=== PATIENT | female | born 1935 | race Caucasian/White ===

== ENCOUNTER → 2017-09-06 | Outpatient (CLI) | payer OTHER, MEDICARE ==
[~2017-09-06] MED LIST: LOMOTIL TABLET1 EACH PO; PANTOPRAZOLE SO40 MG PO; SINCALIDE 3 MCG/VIAL INJ ONE; WELCHOL625 MG PO
--- NOTE | 2017-09-06 09:26 | Diagnostic Imaging Report ---
PROCEDURE:GALLBLADDER ULTRASOUND COMPARISON:None. INDICATIONS:Left upper quadrant pain. TECHNIQUE:Cooper scale and color Doppler ultrasound. FINDINGS: Normal pancreas body and head. Tail obscured by bowel gas. Right liver span 11.7 cm. Normal echogenicity. Smooth margin. Portal vein diameter 9 mm; normal flow direction. Normal gallbladder. Wall thickness 2 mm. Common bile duct diameter 4 mm. Right kidney span 10.2 cm. 1 cm superior pole simple cyst. Otherwise, normal kidney. CONCLUSION: Normal study. Dictated by: Natalio Fitzpatrick M.D. on 09/06/2017 at 9:35 Electronically approved by: Natalio Fitzpatrick M.D. on 09/06/2017 at 9:35
--- NOTE | 2017-09-06 21:16 | Diagnostic Imaging Report ---
Hepatobiliary Scan with Gallbladder Ejection Fraction Clinical information: 82 F with abdominal pain Report: Following intravenous administration of 6.2 millicuries of Tc-99m mebrofenin, dynamic images of the abdomen in the anterior projection were obtained through 50 minutes. Sincalide (CCK analog) 1.6 micrograms was administered intravenously over 30 minutes with additional imaging for determination of gallbladder ejection fraction. Perfusion to the liver is normal. Extraction of tracer from the blood pool by the liver parenchyma is normal. Tracer is seen promptly within the biliary tract. The gallbladder begins to fill by 10 minutes post-injection of tracer and fills adequately. Tracer is seen in the small bowel during the sincalide infusion. The gallbladder ejection fraction with administration of sincalide is 85% (normal greater than 40%). Impression: 1. Filling of the gallbladder excludes the diagnosis of acute cystic duct obstruction/acute cholecystitis. 2. Normal gallbladder ejection fraction of 85% does not support the clinical diagnosis of chronic cholecystitis/gallbladder dyskinesia. Signed by: Dr. Danyelle Jade M.D. on 09/06/2017 9:13 PM
== END ==
LOC: US 08:13
PROVIDERS: ATTEND Internal Medicine Gastroenterology
DX: R10.13 Epigastric pain (principal)
CPT/HCPCS: 76705; 78227; A9537; J2805

== ENCOUNTER 2017-11-08 05:20 | Observation (INO) | payer MEDICARE ==
[~2017-11-08] VITALS: Ht 170.2 cm; Wt 74.4 kg
[~2017-11-08 05:20] MED LIST changes: -SINCALIDE 3 MCG/VIAL INJ ONE
--- OUTSIDE RECORDS SUMMARY | 2017-11-08 05:22 | XMS REPORT ---
Author Author [facility] Address Unknown Phone Unavailable Care Team Providers Care Wet Wheeler Name Role Phone TIFFANIE SMILEY Unavailable Unavailable Problems This patient has no known problems. Allergies, Adverse Reactions, Alerts This patient has no known allergies or adverse reactions. Medications This patient has no known medications. Results Test Description Test Time Test Comments Text Results Atomic Results Result Comments HEPTOBILIARY W PHARM [place] [address] Patient Name: PRINCESS ROWE MR #: [id number] : 1935 Age/Sex: 82/F Req #: [id number] Adm Physician: Ordered by: TIFFANIE SMILEY MD Report #: [id number] Location: US Room/Bed: Procedure: [id number] NM/HEPTOBILIARY W PHARM Exam Date: 09/06/17 Exam Time: 0845 REPORT STATUS: Signed Hepatobiliary Scan with Gallbladder Ejection Fraction Clinical information: 82 F with abdominal pain Report: Following intravenous administration of 6.2 millicuries of Tc-99m mebrofenin, dynamic images of the abdomen in the anterior projection were obtained through 50 minutes. Sincalide (CCK analog) 1.6 micrograms was administered intravenously over 30 minutes with additional imaging for determination of gallbladder ejection fraction. Perfusion to the liver is normal. Extraction of tracer from the blood pool by the liver parenchyma is normal. Tracer is seen promptly within the biliary tract. The gallbladder begins to fill by 10 minutes post-injection of tracer and fills adequately. Tracer is seen in the small bowel during the sincalide infusion. The gallbladder ejection fraction with administration of sincalide is 85% ( normal greater than 40%). Impression: 1. Filling of the gallbladder excludes the diagnosis of acute cystic duct obstruction/acute cholecystitis. 2. Normal gallbladder ejection fraction of 85% does not support the clinical diagnosis of chronic cholecystitis/gallbladder dyskinesia. Signed by: Dr. Toñito Jade M.D. on 09/06/2017 9:13 PM Dictated By: TOÑITO JADE MD 12 Transcribed By: MAR on 09/06/172112 COPY TO: TIFFANIE MSILEY MD GALLBLADDER [place] [address] Patient Name: PRINCESS ROWE MR #: [id number] : 1935 Age/Sex: 82/F Req # : [id number] Adm Physician: Ordered by: TIFFANIE SMILEY MD Report #: [id number] Location: Room/Bed: Procedure: [id number] US/US GALLBLADDER Exam Date: Exam Time: REPORT STATUS: Signed PROCEDURE: GALLBLADDER ULTRASOUND COMPARISON: None. INDICATIONS: Left upper quadrant pain. TECHNIQUE: Cooper scale and color Doppler ultrasound. FINDINGS: Normal pancreas body and head. Tail obscured by bowel gas. Right liver span 11.7 cm. Normal echogenicity. Smooth margin. Portal vein diameter 9 mm; normal flow direction. Normal gallbladder. Wall thickness 2 mm. Common bile duct diameter 4 mm. Right kidney span 10.2 cm. 1 cm superior pole simple cyst. Otherwise, normal kidney. CONCLUSION: Normal study. Dictated by: Devan Fitzpatrick M.D. on 09/06/2017 at 9:35 Electronically approved by: Devan Fitzpatrick M.D. on 09/06/2017 at 9: 35 Dictated By: DEVAN FITZPATRICK MD 4 Transcribed By: MARLIN on 09/06/17934 COPY TO: TIFFANIE SMILEY MD
[2017-11-08] MEDS ORDERED: ASPIRIN 81 MG CHEW TAB PO ONE ×2 (05:30→07:00)
[2017-11-08] MEDS ORDERED: AMLODIPINE BESYL5 MG PO (05:38)
[2017-11-08] MEDS ORDERED: EVOXAC30 MG PO (05:38)
[2017-11-08] MEDS ORDERED: ARICEPT5 MG PO (05:39)
[2017-11-08] MEDS ORDERED: CYMBALTA30 MG PO (05:40)
[2017-11-08] MEDS ORDERED: VITAMIN D31000 UNIT PO (05:42)
[2017-11-08] MEDS ORDERED: ALIGN4 MG PO (05:42)
[2017-11-08] MEDS ORDERED: SUPER B COMPLE150 MG PO (05:43)
[2017-11-08] MEDS ORDERED: MULTIVITAMINS1 EAC7 PO (05:43)
[2017-11-08] MEDS ORDERED: ACETAMINOP325 MG/10 PO (05:44)
[2017-11-08] MEDS ORDERED: L-GLUTAMINE500 MG PO (05:45)
[2017-11-08] MEDS ORDERED: BUDESONIDE EC3 MG PO (05:46)
[2017-11-08] MEDS ORDERED: APRISO0.375 GM PO (05:47)
[2017-11-08 05:57] LABS: BASOPHILS # (AUTO) 0.1 (0.0-0.1); BASOPHILS % 0.6 % (0.0-1.0); EOSINOPHILS # (AUTO) 0.2 (0.0-0.4); EOSINOPHILS % 2.4 % (0.0-6.0); HEMATOCRIT 43.9 % (34.2-44.1); LYMPHOCYTES # (AUTO) 3.1 (1.0-3.2); LYMPHOCYTES % 38.1 % (18.0-39.1); MEAN CORPUSCULAR HEMOGLOBIN 34.9 pg (28-32); MEAN CORPUSCULAR HGB CONC 34.2 g/dL (31-35); MEAN CORPUSCULAR VOLUME 102.1 fL (81-99); MONOCYTES # (AUTO) 0.9 (0.2-0.8); NEUTROPHILS # (AUTO) 3.9 (2.1-6.9); NEUTROPHILS % 47.5 % (38.7-80.0); PLATELET COUNT 362 x10e3/uL (140-360); RED CELL DISTRIBUTION WIDTH 11.9 % (11.7-14.4)
[2017-11-08 06:26] LABS: ALANINE AMINOTRANSFERASE 20 IU/L (0-55); ALBUMIN 3.8 g/dL (3.5-5.0); ALBUMIN/GLOBULIN RATIO 1.4 (0.8-2.0); ALKALINE PHOSPHATASE 65 IU/L (40-150); ANION GAP 13.5 mmol/L (8-16); BLOOD UREA NITROGEN 8 mg/dL (7-26); BUN/CREATININE RATIO 11 (6-25); CALCIUM 9.6 mg/dL (8.4-10.2); CARBON DIOXIDE 26 mmol/L (22-29); CHLORIDE 106 mmol/L (98-107); CREATINE KINASE 30 IU/L (29-168); CREATININE, SERUM 0.71 mg/dL (0.57-1.11); EST GLOMERULAR FILTRATION RATE > 60 ML/MIN (60-); GLUCOSE 89 mg/dL (74-118); INR 1.03; POTASSIUM 3.5 mmol/L (3.5-5.1); PROTHROMBIN TIME 12.7 seconds (11.9-14.5); SODIUM 142 mmol/L (136-145)
[2017-11-08 06:27] LABS: PARTIAL THROMBOPLASTIN TIME 30.2 seconds (23.8-35.5)
--- NOTE | 2017-11-08 06:57 | Diagnostic Imaging Report ---
EXAMINATION: CHEST SINGLE (PORTABLE) INDICATION: Chest pain COMPARISON: None FINDINGS: TUBES and LINES: None. LUNGS: Lungs are well inflated. Lungs are clear. There is no evidence of pneumonia or pulmonary edema. PLEURA: No pleural effusion or pneumothorax. HEART AND MEDIASTINUM: The cardiomediastinal silhouette is unremarkable. BONES AND SOFT TISSUES: No acute osseous lesion. Soft tissues are remarkable for right breast implant. UPPER ABDOMEN: No free air under the diaphragm. IMPRESSION: No acute thoracic abnormality. Signed by: Dr. Flavio Brown M.D. on 11/08/2017 6:54 AM
[2017-11-08] MEDS ORDERED: ONDANSETRON HCL INJ 2 MG/ML VIAL IV PRN (07:00)
[2017-11-08] MEDS ORDERED: SODIUM CHLORIDE FLUSH 10 ML SYR INJ PRN (07:00)
[2017-11-08] MEDS: BIFIDOBACTERIUM INFANTIS 4 MG PO SCH (09:00)
[2017-11-08] MEDS ORDERED: CHOLECALCIFEROL PO SCH (09:00)
[2017-11-08] MEDS: GLUTAMINE PO SCH (09:00)
[2017-11-08] MEDS: VITAMIN B COMPLEX PO SCH (09:00)
[2017-11-08] MEDS: VIT C NO 4 PO SCH (09:00)
[2017-11-08] MEDS: (Cevimeline Hcl (Evoxac) 30 MG) PO SCH ×3 (09:00→21:22)
[2017-11-08 09:35] VITALS: BP 161/85
[2017-11-08] MEDS: BUDESONIDE 3 MG CAPCR PO SCH (10:04)
[2017-11-08] MEDS: AMLODIPINE BESYLATE 5 MG TAB PO SCH (10:04)
[2017-11-08] MEDS: MULTIVITAMINS/MINERALS TAB PO SCH (10:04)
[2017-11-08] MEDS: MESALAMINE 0.375 GM CAPCR PO SCH (10:04)
[2017-11-08] MEDS: DULOXETINE HCL 30 MG DELAYED RELEASE PO SCH (10:04)
[2017-11-08 10:57] VITALS: BP 161/85
[2017-11-08 11:12] VITALS: BP 141/78
[2017-11-08 11:36] LABS: BILIRUBIN,URINE NEGATIVE (NEGATIVE); CLARITY,URINE CLEAR (CLEAR); COLOR,URINE YELLOW (YELLOW); KETONES,URINE NEGATIVE (NEGATIVE); LEUKOCYTE ESTERASE ,URINE NEGATIVE (NEGATIVE); NITRITE,URINE NEGATIVE (NEGATIVE); PROTEIN,URINE DIPSTICK NEGATIVE (NEGATIVE); URINE UROBILINOGEN 0.2 mg/dL (0.2 - 1)
[2017-11-08 11:51] LABS: BACTERIA,URINE RARE /HPF; EPITHELIAL CELLS,URINE RARE /LPF
[2017-11-08] MEDS: CHOLECALCIFEROL 1,000 UNIT TAB PO SCH (11:54)
[2017-11-08] MEDS ORDERED: SALIVA SUBSTITUTE 45 ML LIQD MM PRN (13:30)
[2017-11-08 15:03] LABS: CREATINE KINASE 26 IU/L (29-168)
[2017-11-08 15:09] VITALS: BP 141/79
[2017-11-08 20:00] VITALS: BP 119/66
[2017-11-08] MEDS: DONEPEZIL HCL 5 MG TAB PO SCH (21:22)
[2017-11-08] MEDS: ACETAMINOPHEN 325 MG/10 ML UDC PO SCH (21:22)
--- NOTE | 2017-11-08 21:22 | History and Physical ---
PRIMARY CARE PHYSICIAN: Dr. Gil Cornejo CHIEF COMPLAINT: Chest pain. HISTORY OF PRESENT ILLNESS: This is an 82-year-old woman with a history of TIA in 2016, now developing substernal chest pain in about 3 a.m. in the morning with radiation to the left. She had associated shortness of breath, but no dizziness. Her last stress test was in the past. She does not recall when, but she states it was negative. She had seen Dr. Alvarado in the past. Currently, she continues to have some chest discomfort . PAST MEDICAL HISTORY: Chronic diarrhea, TIA in 2015. Left ventricular ejection fraction 65% in August 2013. Dementia and hypertension. GI bleed. PAST SURGICAL HISTORY: Marcelina fundoplication, inguinal hernia repair, total mastectomy for fibrocystic breast disease, D and C, appendectomy, tonsillectomy. ALLERGIES: PER ELECTRONIC MEDICAL RECORD. FAMILY HISTORY AND SOCIAL HISTORY: The patient is . She has 2 children. No alcohol, illicit drugs, cigarettes. MEDICATIONS: Per electronic medical record. REVIEW OF SYSTEMS: Denies any dizziness, fever or chills. PHYSICAL EXAMINATION VITAL SIGNS: Reviewed. GENERAL: A tired-appearing woman, resting in bed. HEENT: Anicteric. Pupils are responsive to light. No oral lesions. CARDIOVASCULAR: Normal S1 and S2. No murmurs audible. LUNGS: Moderate breath sounds. No wheezing. ABDOMEN: Soft, nontender, nondistended. EXTREMITIES: No edema or calf tenderness. NEUROLOGIC: Alert, oriented times 3, moving all extremities. SKIN: Dry. PSYCHIATRIC: Normal affect. MUSCULOSKELETAL: She has chest wall tenderness on palpation. LABS: Reviewed. MEDICATIONS: Reviewed. ASSESSMENT AND PLAN: This is an 82-year-old woman. 1. Chest pain. Likely musculoskeletal as the chest wall is tender on palpation. However, we will consult cardiology and follow up cardiac enzyme. 2. Overweight state. Body mass index 25.7. However, blood glucose is normal. 3. Questionable anxiety disorder. I will treat empirically with p.r.n. medication. 4. Chronic diarrhea. Continue mesalamine. 5. Hypertension. Continue amlodipine. 6. Dementia. Continue Aricept. 7. Prophylaxis: Will use Lovenox and Pepcid. 8. Disposition: Follow up enzymes. Cardiology consultation. Obtain 2-dimensional echocardiogram and obtain stress test inpatient versus out. Job#: [id number] CODY
[2017-11-08 22:19] LABS: CREATINE KINASE MB 0.7 ng/mL (0-5.0)
[2017-11-08] MEDS ORDERED: ACETAMINOPHEN 325 MG TAB PO PRN (23:45)
[2017-11-09] VITALS (7 sets, daily range): BP systolic 142–179; BP diastolic 74–83
[2017-11-09] MEDS ORDERED: FAMOTIDINE20 MG PO (05:51)
[2017-11-09 06:58] LABS: BASOPHILS % 0.5 % (0.0-1.0); EOSINOPHILS # (AUTO) 0.2 (0.0-0.4); EOSINOPHILS % 2.6 % (0.0-6.0); HEMATOCRIT 39.1 % (34.2-44.1); HEMOGLOBIN 13.3 g/dL (12.0-16.0); LYMPHOCYTES # (AUTO) 2.7 (1.0-3.2); LYMPHOCYTES % 36.6 % (18.0-39.1); MEAN CORPUSCULAR HEMOGLOBIN 34.7 pg (28-32); MEAN CORPUSCULAR VOLUME 102.1 fL (81-99); MONOCYTES # (AUTO) 0.8 (0.2-0.8); MONOCYTES % 10.3 % (4.4-11.3); NEUTROPHILS # (AUTO) 3.7 (2.1-6.9); NEUTROPHILS % 49.3 % (38.7-80.0); PLATELET COUNT 305 x10e3/uL (140-360); RED BLOOD COUNT 3.83 x10e6/uL (3.6-5.1); RED CELL DISTRIBUTION WIDTH 11.9 % (11.7-14.4)
[2017-11-09 07:33] LABS: ALANINE AMINOTRANSFERASE 16 IU/L (0-55); ALBUMIN 3.3 g/dL (3.5-5.0); ALBUMIN/GLOBULIN RATIO 1.4 (0.8-2.0); ALKALINE PHOSPHATASE 60 IU/L (40-150); ANION GAP 9.9 mmol/L (8-16); BLOOD UREA NITROGEN 8 mg/dL (7-26); BUN/CREATININE RATIO 11 (6-25); CALCIUM 9.1 mg/dL (8.4-10.2); CARBON DIOXIDE 30 mmol/L (22-29); CHLORIDE 107 mmol/L (98-107); EST GLOMERULAR FILTRATION RATE > 60 ML/MIN (60-); GLUCOSE 87 mg/dL (74-118); POTASSIUM 3.9 mmol/L (3.5-5.1); SODIUM 143 mmol/L (136-145)
--- NOTE | 2017-11-09 08:12 | Consultation ---
DATE OF CONSULTATION: CARDIOLOGY CONSULTATION CHIEF COMPLAINT: The patient is an 82 year old with chest pain. HISTORY OF PRESENT ILLNESS: The patient is an 82 year old who has been having chest pressure and chest pain on a frequent basis for several years. Last night the patient had some more chest pain, which awoke her from sleep and lasted about 20 minutes. The patient came to the emergency room and was subsequently admitted. The patient has had no further chest pain. PAST MEDICAL HISTORY: Significant for: 1. Hypertension. 2. Sjogren's syndrome. 3. Previous neck surgery. 4. Previous bilateral mastectomy. MEDICATIONS: At home include amlodipine, Aricept, Pepcid. SOCIAL HISTORY: The patient does not drink and does not smoke. PHYSICAL EXAMINATION GENERAL: The patient is a well-developed, well-nourished female in no obvious distress. VITAL SIGNS: Temperature 97.8, blood pressure 142/80. HEENT: The patient's cranium was normocephalic and atraumatic. Extraocular muscles were intact. Sclerae were anicteric. Pupils equal, round and reactive to light. There is no pallor or cyanosis of the oral mucosa. There is no erythema or edema of the throat. NECK: Supple. No jugular venous distention. No carotid bruits. CHEST: Demonstrated rhonchi bilaterally. CARDIAC: Demonstrated normal S1 and S2. A short 2/6 systolic murmur. ABDOMEN: Demonstrated good bowel sounds. No tenderness. No masses. EXTREMITIES: There is no clubbing. No cyanosis. No edema. NEUROLOGIC: The patient was awake and in no distress. Cranial nerves were intact. Motor strength was intact in all limbs. The patient's EKG demonstrated normal sinus rhythm with nonspecific S-T and T-wave changes. IMPRESSION: The patient is an 82 year old with atypical chest pain. The patient's electrocardiogram is unremarkable. The patient's cardiac enzymes are negative. RECOMMENDATIONS: Are as follows: 1. The patient will require an echocardiogram. 2. A Lexiscan nuclear stress test has been ordered to exclude ischemia. Job#: [id number] RI cc:CIRILO BROTHERS MD
[2017-11-09] MEDS ORDERED: REGADENOSON 0.4 MG/5 ML SYR IV ONE (08:32)
[2017-11-09] MEDS: VIT C NO 4 PO SCH (09:00)
[2017-11-09] MEDS: BIFIDOBACTERIUM INFANTIS 4 MG PO SCH (09:00)
[2017-11-09] MEDS: BUDESONIDE 3 MG CAPCR PO SCH (09:00)
[2017-11-09] MEDS: (Cevimeline Hcl (Evoxac) 30 MG) PO SCH ×3 (09:00→20:07)
[2017-11-09] MEDS: VITAMIN B COMPLEX PO SCH (09:00)
[2017-11-09] MEDS: GLUTAMINE PO SCH (09:00)
[2017-11-09] MEDS: AMLODIPINE BESYLATE 5 MG TAB PO SCH (09:50)
[2017-11-09] MEDS: CHOLECALCIFEROL 1,000 UNIT TAB PO SCH (09:50)
[2017-11-09] MEDS: ACETAMINOPHEN 325 MG/10 ML UDC PO SCH (09:50)
[2017-11-09] MEDS: DULOXETINE HCL 30 MG DELAYED RELEASE PO SCH (09:50)
[2017-11-09] MEDS: MESALAMINE 0.375 GM CAPCR PO SCH (09:50)
[2017-11-09] MEDS: FAMOTIDINE 20 MG TAB PO SCH ×2 (09:50→17:11)
[2017-11-09] MEDS: MULTIVITAMINS/MINERALS TAB PO SCH (09:50)
--- NOTE | 2017-11-09 14:20 | Cardiology Report ---
DATE OF STUDY: LEXISCAN NUCLEAR STRESS TEST INDICATIONS: Chest pain. COMPLICATIONS: None. ANESTHESIA: Versed, fentanyl and lidocaine. TECHNIQUE: The patient was given 10 millicuries of Myoview. Resting images were obtained in the horizontal long axis, vertical long axis and short axis. The patient was then hooked up to the EKG machine and Lexiscan was infused over 15 seconds. Immediately, after Lexiscan infusion, the patient was given 30 millicuries of Myoview. Stress images were obtained in the horizontal long axis, vertical long axis and short axis. RESULTS 1. The resting EKG demonstrated normal sinus rhythm with some nonspecific S/T and T-wave changes. 2. There were no EKG changes and no symptoms during Lexiscan infusion. 3. The patient had normal perfusion to all segments of the myocardium during both stress and rest. 4. There was normal left ventricular size and function with an ejection fraction of 60%. CONCLUSION: Normal Lexiscan nuclear stress test with no evidence of ischemia. There is no fixed defect and no reversible defect. There is normal left ventricular size and function with an ejection fraction of 60%. Job#: [id number] RI cc:ICRILO BROTHERS MD
[2017-11-09] MEDS ORDERED: ACETAMIN/BUTALBITAL/CAFFEINE TAB PO PRN (16:00)
[2017-11-09] MEDS ORDERED: ACETAMIN/BUTALBITAL/CAFFEINE TAB PO ONE (16:00)
[2017-11-09] MEDS ORDERED: ENOXAPARIN SOD INJ 40 MG/0.4 ML SYR SC SCH (17:00)
[2017-11-09] MEDS ORDERED: HYDRALAZINE HCL 20 MG/ML VIAL IV PRN (19:15)
[2017-11-09] MEDS ORDERED: HYDROCODONE/APAP 5MG-325MG TAB PO PRN ×2 (19:15→19:30)
[2017-11-09] MEDS: DONEPEZIL HCL 5 MG TAB PO SCH (20:07)
[2017-11-10 03:40] VITALS: BP 152/77
--- NOTE | 2017-11-10 06:57 | Progress Note ---
DATE: November 09, 2017 TIME: 7 a.m. OVERNIGHT: No events. REVIEW OF SYSTEMS: Denies any dizziness or chest pain. PHYSICAL EXAMINATION VITAL SIGNS: Reviewed. GENERAL: A tired-appearing woman resting in bed. HEENT: Anicteric. CARDIOVASCULAR: Normal S1 and S2. LUNGS: Moderate breath sounds. ABDOMEN: Soft and nontender. EXTREMITIES: No edema. SKIN: Dry. PSYCHIATRIC: Normal affect. MUSCULOSKELETAL: Tender chest wall. LABS: Reviewed. MEDICATIONS: Reviewed. ASSESSMENT: An 82-year-old woman with: 1. Musculoskeletal chest pain. 2. Overweight state. 3. Questionable anxiety disorder. 4. Chronic diarrhea. 5. Hypertension. 6. Dementia. PLAN 1. Continue meloxicam for musculoskeletal chest pain. 2. Follow up cardiac recommendations and possible stress test. 3. Treat anxiety empirically. 4. Continue mesalamine for chronic diarrhea. 5. Continue Aricept for dementia. 6. Follow up echo and stress test. Job#: [id number] [place]
--- NOTE | 2017-11-10 07:00 | Discharge Summary ---
PRINCIPAL DIAGNOSES 1. Musculoskeletal chest pain. 2. Negative stress testing. 3. Normal left ventricular ejection fraction. 4. Overweight state. Body mass index 25.7. 5. Questionable anxiety disorder. SECONDARY DIAGNOSES 1. Hypertension. 2. Chronic diarrhea. CHIEF COMPLAINT: Chest pain. HISTORY OF PRESENT ILLNESS: An 82-year-old woman with chest pain. Refer to the H and P for further details. HOSPITAL COURSE: The patient was found to have musculoskeletal chest pain. Cardiac enzymes were obtained. Underwent stress testing, which was normal. No ischemia. Left ventricular ejection fraction normal. The patient currently appropriate for discharge. Follow up. DISCHARGE MEDICATIONS: Per electronic medical record. FOLLOWUP: Primary care doctor in 1 week. CONDITION ON DISCHARGE: Stable and improving. DISCHARGE LOCATION: Home. CIRILO BROTHERS MD Job#: [id number] [place]
[2017-11-10 07:39] VITALS: BP 164/76
[2017-11-10] MEDS: DULOXETINE HCL 30 MG DELAYED RELEASE PO SCH (08:32)
[2017-11-10] MEDS: FAMOTIDINE 20 MG TAB PO SCH (08:32)
[2017-11-10] MEDS: BUDESONIDE 3 MG CAPCR PO SCH (08:32)
[2017-11-10] MEDS: MESALAMINE 0.375 GM CAPCR PO SCH (08:32)
[2017-11-10] MEDS: BIFIDOBACTERIUM INFANTIS 4 MG PO SCH (08:32)
[2017-11-10] MEDS: (Cevimeline Hcl (Evoxac) 30 MG) PO SCH (08:33)
[2017-11-10] MEDS: GLUTAMINE PO SCH (08:33)
[2017-11-10] MEDS: VITAMIN B COMPLEX PO SCH (08:33)
[2017-11-10] MEDS: MULTIVITAMINS/MINERALS TAB PO SCH (08:33)
[2017-11-10] MEDS: AMLODIPINE BESYLATE 5 MG TAB PO SCH (08:33)
[2017-11-10] MEDS: VIT C NO 4 PO SCH (08:33)
[2017-11-10] MEDS: CHOLECALCIFEROL 1,000 UNIT TAB PO SCH (08:33)
== END 2017-11-10 09:15 | disposition home or self-care (01) ==
LOC: ER 05:20 → ERHOLD 06:53 → IMCU 08:59
PROVIDERS: ADMIT Internal Medicine; ATTEND Internal Medicine
DX: R07.89 Other chest pain (principal); K52.9 Noninfective gastroenteritis and colitis, unspecified; E66.9 Obesity, unspecified; Z68.25 Body mass index [BMI] 25.0-25.9, adult; F41.9 Anxiety disorder, unspecified; F03.90 Unspecified dementia, unspecified severity, without behavioral disturbance, psychotic disturbance, mood disturbance, and anxiety; Z86.73 Personal history of transient ischemic attack (TIA), and cerebral infarction without residual deficits; Z88.6 Allergy status to analgesic agent; Z88.8 Allergy status to other drugs, medicaments and biological substances; I10 Essential (primary) hypertension
CPT/HCPCS: 36415 ×2; 71045; 78452; 80053 ×2; 80061; 81001; 82550; 82553; 84484; 85025 ×2; 85610; 85730; 93005; 93017; 93306; 93880; 97139; 99284; A9502; G0378 ×3; J0360; J1650

== ENCOUNTER 2019-02-13 11:10 | Emergency (ER) | payer MEDICARE ==
[~2019-02-13] VITALS: Ht 170.2 cm; Wt 74.4 kg
[~2019-02-13 11:10] MED LIST changes: +ACETAMINOP325 MG/10 PO; +ALIGN4 MG PO; +AMLODIPINE BESYL5 MG PO; +APRISO0.375 GM PO; +ARICEPT5 MG PO; +BUDESONIDE EC3 MG PO; +CYMBALTA30 MG PO; +EVOXAC30 MG PO; +FAMOTIDINE20 MG PO; +L-GLUTAMINE500 MG PO; +MULTIVITAMINS1 EAC7 PO; +SUPER B COMPLE150 MG PO; +VITAMIN D31000 UNIT PO
--- OUTSIDE RECORDS SUMMARY | 2019-02-13 11:15 | XMS REPORT | Continuity of Care Document ---
Author Author [email or web address] Address Unknown Phone Unavailable Care Team Providers Care Medical Asst Name Role Phone Condition One [employer] Unavailable Unavailable Problems Problem Status Onset Date Classification Date Reported Comments Source R13.10 Active 02/09/2017 [facility] Discharge Diagnosis: Vasovagal near syncope 11/08/2014 11/10/2014 [facility] WEAKNESS Active 11/08/2014 [facility] RECTAL PROLAPSED Active 09/20/2014 [facility] DR SENT/ KIDNEY INFECTION Active 12/28/2013 [facility] PYELONEPHRITIS Active 12/28/2013 [facility] Chronic gastritis Active Problem 02/14/2017 [facility] OA (Confirmed) Active Problem 02/14/2017 [facility] Rectal prolapse Active Problem 02/14/2017 [facility] Sjogrens syndrome Active Problem 02/14/2017 [facility] PYELONEPHRITIS NOS Active [facility] RECTAL PROLAPSE Active [facility] Medications Medication Details Route Status Patient Instructions Ordering Provider Order Date Source Saline Flush 0.9% 10 mL, Route: IVP, Drug Form: INJ, Dosing Weight 65.909, kg, PRN, PRN Line Flush, Start date: 11/08/14 14:31:00, Duration: 30 day, Stop date: 12/08/14 14:30:00Notes: (Same as: BD Posiflush) No Longer Active 11/08/2014 [facility] Sodium Chloride 0.154 MEQ/ML Injectable Solution 1,000 mL, 1,000 ml/hr, Infuse Over: 1 hr, Route: IV, ONCE, Priority: STAT, Dosing Weight 65.909 kg, Start date: 11/08/14 14:31:00, Duration: 1 doses or times, Stop date: 11/08/14 14:31:00 Inactive 11/08/2014 [facility] Levofloxacin 500 MG Oral Tablet [Levaquin] 500 mg=1 tab, PO, Daily, # 10 tab, 0 Refill(s) Active 01/01/2014 [facility] Milk of Magnesia 30 ml, Route: PO, Drug Form: SUSP, Dosing Weight 65.909, kg, Q6H, PRN Constipation, Start date: 12/31/13 9:31:00, Duration: 30 day, Stop date: 01/30/14 9:30:00Notes: (Same as: Milk of Magnesia, MOM) No Longer Active 12/31/2013 [facility] Potassium Chloride 20 mEq, 1 tab, Route: PO, Drug form: ERTAB, ONCE, Dosing Weight 65.909, kg, Start date: 12/30/13 10:41:00, Stop date: 12/30/13 10:41:00Notes: (Same as: K-Dur 20) "Do Not Crush" With food and full glass of water Inactive 12/30/2013 [facility] Rocephin + Sodium Chloride 0.9% IV 100 mL 1 gm, Route: IVPB, [id number], Start date: 12/29/13 22:30:00, Duration: 30 day, Stop date: 01/27/14 22:30:00Notes: (Same As: Rocephin). Use with 100ml NS mini-bag PLUS and infuse over 30 min Inactive 12/30/2013 [facility] Protonix 40 mg, 1 tab, Route: PO, Drug form: ECTAB, Before Dinner, Dosing Weight 65.909, kg, Start date: 12/29/13 16:30:00, Duration: 30 day, Stop date: 01/27/14 16:30:00Notes: Tablet should not be chewed or crushed. (Same as: Protonix) No Longer Active 12/29/2013 [facility] Ciprofloxacin 2 MG/ML Injectable Solution [Cipro] 400 mg, 200 mL, Route: IVPB, Drug form: INJ, [id number], Dosing Weight 65.909, kg, Start date: 12/29/13 12:00:00, Duration: 30 day, Stop date: 01/28/14 0:00:00Notes: Do not refrigerate No Longer Active 12/29/2013 [facility] cefepime 1 gm, Route: IVPB, [id number], Dosing Weight 65.909, kg, (CrCl 30 - 49 ml/min), Start date: 12/29/13 12:00:00, Duration: 30 day, Stop date: 01/28/14 0:00:00Notes: (Same As: Maxipime) No Longer Active 12/29/2013 [facility] Zofran 4 mg, 2 mL, Route: IV, Drug form: INJ, Q8H, Dosing Weight 65.909, kg, PRN Nausea, Start date: 12/29/13 11:51:00, Duration: 30 day, Stop date: 01/28/14 11:50:00Notes: (Same as: Zofran) No Longer Active 12/29/2013 [facility] NS 1,000 mL 1,000 mL, Rate: 60 ml/hr, Infuse over: 16.7 hr, Route: IV, Dosing Weight 65.909 kg, Total Volume: 1,000, Start date: 12/29/13 11:50:00, Duration: 2 doses or times, Stop date: 12/30/13 21:13:00 No Longer Active 12/29/2013 [facility] Tylenol 650 mg, 2 tab, Route: PO, Drug form: TAB, Q4H, Dosing Weight 65.909, kg, PRN Fever, Start date: 12/29/13 11:49:00, Duration: 30 day, Stop date: 01/28/14 11:48:00Notes: Do not exceed 4 gm/day. (Same as: Tylenol) No Longer Active 12/29/2013 [facility] Potassium Chloride 20 mEq, 1 tab, Route: PO, Drug form: ERTAB, ONCE, Dosing Weight 65.909, kg, Start date: 12/29/13 5:19:00, Stop date: 12/29/13 5:19:00Notes: (Same as: K-Dur 20) "Do Not Crush" With food and full glass of water Inactive 12/29/2013 [facility] Ceftriaxone 1 gm, Route: IVPB, [id number], Dosing Weight 65.909, kg, Priority: STAT, Start date: 12/29/13 1:18:00, Duration: 30 day, Stop date: 01/27/14 1:18:00Notes: (Same As: Rocephin). Use with 100ml NS mini-bag PLUS and infuse over 30 min Inactive 12/29/2013 [facility] Acetaminophen 325 MG / Hydrocodone Bitartrate 5 MG Oral Tablet 1 tab, Route: PO, Drug Form: TAB, Dosing Weight 65.909, kg, Q4H, PRN Pain Score 1-3, Start date: 12/29/13 1:18:00, Duration: 30 day, Stop date: 01/28/14 1:17:00Notes: (Same as: Napoleon 325/5) Do not exceed 4gm/day of acetaminophen. No Longer Active 12/29/2013 [facility] Melatonin 1 mg oral tablet 1 mg=1 tab, PO, Bedtime, for insomnia, # 90 tab, 0 Refill(s) Active 12/29/2013 [facility] Saccharomyces boulardii lyo 250 MG Oral Capsule [Florastor] 250 mg=1 cap, PO, BID, 0 Refill(s) Active 12/29/2013 [facility] Ketorolac 30 mg, 1 mL, Route: IVP, Drug form: INJ, ONCE, Dosing Weight 65.909, kg, Priority: STAT, Start date: 12/28/13 20:40:00, Stop date: 12/28/13 20:40:00Notes: (Same as:Toradol) IV bolus must be given >15 seconds. Give IM administration slowly and deeply into the muscle. Not for use > 4 days Inactive 12/29/2013 [facility] Ceftriaxone 1 gm, Route: IVPB, ONCE, Dosing Weight 65.909, kg, Priority: STAT, Start date: 12/28/13 20:35:00, Stop date: 12/28/13 20:35:00Notes: (Same As: Rocephin). Use with 100ml NS mini-bag PLUS and infuse over 30 min Inactive 12/29/2013 [facility] Saline Flush 0.9% 5 mL, Route: IVP, Drug Form: INJ, kg, PRN, PRN Line Flush, Start date: 12/28/13 19:07:00, Duration: 24 hr, Stop date: 12/29/13 19:06:00Notes: (Same as: BD Posiflush) No Longer Active 12/29/2013 [facility] Allergies, Adverse Reactions, Alerts Substance Category Reaction Severity Reaction type Status Date Reported Comments Source azithromycin Assertion Drug allergy Active [facility] Food Lactose Intolerance (Restricts Milk/Milk Products) Assertion Drug allergy Active [facility] Food Pork Assertion Drug allergy Active [facility] Food Shellfish Assertion Drug allergy Active [facility] NSAIDs Assertion Drug allergy Active [facility] penicillins Assertion Drug allergy Active [facility] sulfa drugs Assertion Drug allergy Active [facility] Mycinette Sore Throat Cammal Assertion Drug allergy Active [facility] Immunizations No Data Provided for This Section Results Order Name Results Value Reference Range Date Interpretation Comments Source URINE AND STOOL UA Bacteria Occasional /HPF None Seen /HPF 11/08/2014 [facility] URINE AND STOOL UA Hyal Cast 2 0 - 2 11/08/2014 [facility] URINE AND STOOL UA WBC 2 0 - 5 11/08/2014 [facility] URINE AND STOOL UA RBC 1 0 - 2 11/08/2014 [facility] URINE AND STOOL UA Blood Negative (11/08/14 4:04 PM) Negative 11/08/2014 [facility] URINE AND STOOL UA Nitrite Negative (11/08/14 4:04 PM) Negative 11/08/2014 [facility] URINE AND STOOL UA Bili Negative *NA* (11/08/14 4:04 PM) Negative 11/08/2014 [facility] URINE AND STOOL UA Leuk Est Negative (11/08/14 4:04 PM) Negative 11/08/2014 [facility] URINE AND STOOL UA Sq Epi Occasional /LPF Few /LPF 11/08/2014 [facility] URINE AND STOOL UA Turbidity Clear (11/08/14 4:04 PM) Clear 11/08/2014 [facility] URINE AND STOOL UA Spec Grav 1.009 <=1.030 11/08/2014 [facility] URINE AND STOOL UA Glucose Negative mg/dL Negative mg/dL 11/08/2014 [facility] URINE AND STOOL UA pH 7.0 5.0 - 8.0 11/08/2014 [facility] URINE AND STOOL UA Protein Negative mg/dL Negative mg/dL 11/08/2014 [facility] URINE AND STOOL UA Color Ltyellow 11/08/2014 [facility] URINE AND STOOL UA Urobilinogen <=1.0 mg/dL 0.1 - 1.0 11/08/2014 [facility] URINE AND STOOL UA Ketones Negative mg/dL Negative mg/dL 11/08/2014 [facility] CHEM PANEL Lactic Acid Lvl 1.0 0.5 - 2.2 11/08/2014 [facility] CARDIAC ENZYMES CK MB Index 1.9 0.0 - 2.5 11/08/2014 [facility] CARDIAC ENZYMES CK MB 0.9 0.5 - 3.6 11/08/2014 [facility] CARDIAC ENZYMES Total CK 48 12 - 191 11/08/2014 [facility] CARDIAC ENZYMES Troponin-I <0.02 0.00 - 0.40 11/08/2014 [facility] CHEM PANEL eGFR 62 11/08/2014 <sup>1</sup>Result Comment: The eGFR is calculated using the CKD-EPI formula. In most young, healthy individuals the eGFR will be >90 mL/min/1.73m2. The eGFR declines with age. An eGFR of 60-89 may be normal in some populations, particularly the elderly, for whom the CKD-EPI formula has not been extensively validated. Use of the eGFR is not recommended in the following populations:& lt;br/>
Individuals with unstable creatinine concentrations, including patients and those with serious co-morbid conditions.

Patients with extremes in muscle mass or diet.

The data above are obtained from the National Kidney Disease Education Program (NKDEP) which additionally recommends that when the eGFR is used in patients with extremes of body mass index for purposes of drug dosing, the eGFR should be multiplied by the estimated BMI. [facility] CHEM PANEL Chloride Lvl 107 95 - 109 11/08/2014 [facility] CHEM PANEL Calcium Lvl 9.0 8.5 - 10.5 11/08/2014 [facility] CHEM PANEL Albumin Lvl 4.0 3.5 - 5.0 11/08/2014 [facility] CHEM PANEL Sodium Lvl 141 135 - 145 11/08/2014 [facility] CHEM PANEL Potassium Lvl 3.6 3.5 - 5.1 11/08/2014 [facility] CHEM PANEL Creatinine Lvl 0.9 0.5 - 1.4 11/08/2014 [facility] CHEM PANEL A/G Ratio 1.1 0.7 - 1.6 11/08/2014 [facility] CHEM PANEL Globulin 3.5 2.0 - 4.0 11/08/2014 [facility] CHEM PANEL AGAP 9.6 10.0 - 20.0 11/08/2014 [facility] CHEM PANEL B/C Ratio 12 6 - 25 11/08/2014 [facility] CHEM PANEL Bili Total 0.3 0.2 - 1.3 11/08/2014 [facility] CHEM PANEL Alk Phos 100 39 - 136 11/08/2014 [facility] CHEM PANEL ALT 20 0 - 65 11/08/2014 [facility] CHEM PANEL Total Protein 7.5 6.4 - 8.4 11/08/2014 [facility] CHEM PANEL CO2 28 24 - 32 11/08/2014 [facility] CHEM PANEL AST 22 0 - 37 11/08/2014 [facility] CHEM PANEL BUN 11 7 - 22 11/08/2014 [facility] CHEM PANEL Glucose Lvl 105 70 - 99 11/08/2014 <sup>2</sup>Interpretive Data: Adult reference range values reflect the clinical guidelines
of the [place] [employer]. [facility] HEMATOLOGY Eosinophils 1.7 0.0 - 4.0 11/08/2014 [facility] HEMATOLOGY Basophils 0.8 0.0 - 1.0 11/08/[address] [facility] Lymphocytes # 1.2 1.0 - 5.5 11/08/2014 [facility] HEMATOLOGY Segs-Bands # 6.0 1.5 - 8.1 11/08/[address] [facility] Monocytes # 0.4 0.0 - 0.8 11/08/[address] [facility] Basophils # 0.1 0.0 - 0.2 11/08/[address] [facility] Eosinophils # 0.1 0.0 - 0.5 11/08/[address] [facility] Macrocyte 1+ *ABN* (11/08/14 3:03 PM) None Seen 11/08/[address] [facility] Monocytes 5.7 2.0 - 12.0 11/08/2014 [facility] HEMATOLOGY Segs 76.0 45.0 - 75.0 11/08/[address] [facility] Lymphocytes 15.8 20.0 - 40.0 11/08/[address] [facility] MPV 9.0 7.4 - 10.4 11/08/[address] [facility] Platelet 437 133 - 450 11/08/[address] [facility] RDW 12.7 11.5 - 14.5 11/08/[address] [facility] MCH 34.3 27.0 - 31.0 11/08/[address] [facility] MCHC 33.4 32.0 - 36.0 11/08/[address] [facility] RBC 4.14 4.20 - 5.40 11/08/[address] [facility] Hgb 14.2 12.0 - 16.0 11/08/[address] [facility] WBC 7.9 3.7 - 10.4 11/08/[address] [facility] Hct 42.4 36.0 - 48.0 11/08/2014 [facility] HEMATOLOGY MCV 102.5 80.0 - 98.0 11/08/2014 [facility] ANEMIA STUDY Vitamin B12 Lvl 604 254 - 1320 01/01/2014 [facility] ANEMIA STUDY Folate Lvl 12.5 >=3.0 ng/mL 01/01/2014 [facility] ANEMIA STUDY TIBC 229 228 - 428 01/01/2014 [facility] ANEMIA STUDY Iron 41 30 - 160 01/01/2014 [facility] ANEMIA STUDY % [place] 18 12 - 57 01/01/2014 [facility] ANEMIA STUDY UIBC 188 110 - 370 01/01/2014 [facility] CHEM PANEL eGFR 72 01/01/2014 <sup>1</sup>Result Comment: The eGFR is calculated using the CKD-EPI formula. In most young, healthy individuals the eGFR will be >90 mL/min/1.73m2. The eGFR declines with age. An eGFR of 60-89 may be normal in some populations, particularly the elderly, for whom the CKD-EPI formula has not been extensively validated. Use of the eGFR is not recommended in the following populations:& lt;br/>
Individuals with unstable creatinine concentrations, including patients and those with serious co-morbid conditions.

Patients with extremes in muscle mass or diet.

The data above are obtained from the National Kidney Disease Education Program (NKDEP) which additionally recommends that when the eGFR is used in patients with extremes of body mass index for purposes of drug dosing, the eGFR should be multiplied by the estimated BMI. [facility] CHEM PANEL AGAP 12.3 10.0 - 20.0 01/01/2014 [facility] CHEM PANEL Potassium Lvl 4.3 3.5 - 5.1 01/01/2014 [facility] CHEM PANEL Chloride Lvl 107 95 - 109 01/01/2014 [facility] CHEM PANEL CO2 26 24 - 32 01/01/2014 [facility] CHEM PANEL Calcium Lvl 8.4 8.5 - 10.5 01/01/2014 [facility] CHEM PANEL BUN 11 7 - 22 01/01/2014 [facility] CHEM PANEL Sodium Lvl 141 135 - 145 01/01/2014 [facility] CHEM PANEL Creatinine Lvl 0.8 0.5 - 1.4 01/01/2014 [facility] CHEM PANEL Glucose Lvl 91 70 - 99 01/01/2014 <sup>4</sup>Interpretive Data: Adult reference range values reflect the clinical guidelines
of the [place] [employer]. [facility] CHEM PANEL Phosphorus 3.7 2.5 - 4.5 01/01/2014 [facility] CHEM PANEL Magnesium Lvl 2.1 1.8 - 2.4 01/01/[address] [facility] MPV 8.9 7.4 - 10.4 01/01/[address] [facility] MCH 34.2 27.0 - 31.0 01/01/2014 [facility] HEMATOLOGY MCV 98.8 81.0 - 99.0 01/01/2014 [facility] HEMATOLOGY Hct 32.6 36.0 - 48.0 01/01/[address] [facility] RBC 3.30 4.20 - 5.40 01/01/[address] [facility] Hgb 11.3 12.0 - 16.0 01/01/[address] [facility] WBC 6.4 3.7 - 10.4 01/01/[address] [facility] Platelet 393 133 - 450 01/01/[address] [facility] RDW 12.2 11.5 - 14.5 01/01/[address] [facility] MCHC 34.6 32.0 - 36.0 01/01/2014 [facility] CHEM PANEL Magnesium Lvl 2.1 1.8 - 2.4 12/31/2013 [facility] CHEM PANEL Phosphorus 3.3 2.5 - 4.5 12/31/2013 [facility] CHEM PANEL eGFR 84 12/31/2013 <sup>2</sup>Result Comment: The eGFR is calculated using the CKD-EPI formula. In most young, healthy individuals the eGFR will be >90 mL/min/1.73m2. The eGFR declines with age. An eGFR of 60-89 may be normal in some populations, particularly the elderly, for whom the CKD-EPI formula has not been extensively validated. Use of the eGFR is not recommended in the following populations:& lt;br/>
Individuals with unstable creatinine concentrations, including patients and those with serious co-morbid conditions.

Patients with extremes in muscle mass or diet.

The data above are obtained from the National Kidney Disease Education Program (NKDEP) which additionally recommends that when the eGFR is used in patients with extremes of body mass index for purposes of drug dosing, the eGFR should be multiplied by the estimated BMI. [facility] CHEM PANEL Glucose Lvl 105 70 - 99 12/31/2013 <sup>5</sup>Interpretive Data: Adult reference range values reflect the clinical guidelines
of the [place] [employer]. [facility] CHEM PANEL BUN 7 7 - 22 12/31/2013 [facility] CHEM PANEL Creatinine Lvl 0.7 0.5 - 1.4 12/31/2013 [facility] CHEM PANEL Potassium Lvl 3.6 3.5 - 5.1 12/31/2013 [facility] CHEM PANEL Sodium Lvl 142 135 - 145 12/31/2013 [facility] CHEM PANEL CO2 24 24 - 32 12/31/2013 [facility] CHEM PANEL Chloride Lvl 109 95 - 109 12/31/2013 [facility] CHEM PANEL Calcium Lvl 8.6 8.5 - 10.5 12/31/2013 [facility] CHEM PANEL AGAP 12.6 10.0 - 20.0 12/31/2013 [facility] HEMATOLOGY MCV 99.2 81.0 - 99.0 12/31/2013 [facility] HEMATOLOGY RDW 12.1 11.5 - 14.5 12/31/2013 [facility] HEMATOLOGY MCH 33.4 27.0 - 31.0 12/31/2013 [facility] HEMATOLOGY Hct 32.2 36.0 - 48.0 12/31/2013 [facility] HEMATOLOGY MCHC 33.6 32.0 - 36.0 12/31/2013 [facility] HEMATOLOGY WBC 5.5 3.7 - 10.4 12/31/2013 [facility] HEMATOLOGY Hgb 10.8 12.0 - 16.0 12/31/2013 [facility] HEMATOLOGY RBC 3.24 4.20 - 5.40 12/31/2013 [facility] HEMATOLOGY MPV 8.9 7.4 - 10.4 12/31/2013 [facility] HEMATOLOGY Platelet 379 133 - 450 12/31/2013 [facility] CHEM PANEL Calcium Lvl 8.4 8.5 - 10.5 12/30/2013 [facility] CHEM PANEL AGAP 12.4 10.0 - 20.0 12/30/2013 [facility] CHEM PANEL Potassium Lvl 3.4 3.5 - 5.1 12/30/2013 [facility] CHEM PANEL Chloride Lvl 106 95 - 109 12/30/2013 [facility] CHEM PANEL CO2 25 24 - 32 12/30/2013 [facility] CHEM PANEL Sodium Lvl 140 135 - 145 12/30/2013 [facility] CHEM PANEL Glucose Lvl 90 70 - 99 12/30/2013 <sup>6</sup>Interpretive Data: Adult reference range values reflect the clinical guidelines
of the [place] [employer]. [facility] CHEM PANEL Creatinine Lvl 0.8 0.5 - 1.4 12/30/2013 [facility] CHEM PANEL BUN 8 7 - 22 12/30/2013 [facility] CHEM PANEL eGFR 72 12/30/2013 <sup>3</sup>Result Comment: The eGFR is calculated using the CKD-EPI formula. In most young, healthy individuals the eGFR will be >90 mL/min/1.73m2. The eGFR declines with age. An eGFR of 60-89 may be normal in some populations, particularly the elderly, for whom the CKD-EPI formula has not been extensively validated. Use of the eGFR is not recommended in the following populations:& lt;br/>
Individuals with unstable creatinine concentrations, including patients and those with serious co-morbid conditions.

Patients with extremes in muscle mass or diet.

The data above are obtained from the National Kidney Disease Education Program (NKDEP) which additionally recommends that when the eGFR is used in patients with extremes of body mass index for purposes of drug dosing, the eGFR should be multiplied by the estimated BMI. [facility] CHEM PANEL Phosphorus 3.3 2.5 - 4.5 12/30/2013 [facility] CHEM [facility] Magnesium Lvl 2.1 1.8 - 2.4 12/30/[address] [facility] Hct 34.6 36.0 - 48.0 12/30/2013 [facility] HEMATOLOGY MCV 98.9 81.0 - 99.0 12/30/[address] [facility] RBC 3.50 4.20 - 5.40 12/30/[address] [facility] Hgb 11.8 12.0 - 16.0 12/30/[address] [facility] WBC 6.3 3.7 - 10.4 12/30/[address] [facility] MCHC 33.9 32.0 - 36.0 12/30/[address] [facility] RDW 11.9 11.5 - 14.5 12/30/[address] [facility] Platelet 348 133 - 450 12/30/[address] [facility] MCH 33.6 27.0 - 31.0 12/30/2013 [facility] HEMATOLOGY MPV 8.7 7.4 - 10.4 12/30/2013 [facility] SPECIAL CHEMISTRY Hgb A1C 4.6 <=5.6 % 12/30/2013 [facility] THYROID PANEL TSH 1.160 0.360 - 3.740 12/30/2013 [facility] CHEM PANEL Lactic Acid Lvl 1.1 0.5 - 2.2 12/29/2013 [facility] URINE AND STOOL UA [place] Yeast Occasional /HPF None Seen /HPF 12/29/2013 [facility] URINE AND STOOL UA Bacteria Occasional /HPF None Seen /HPF 12/29/2013 [facility] URINE AND STOOL UA RBC 9 0 - 2 12/29/2013 [facility] URINE AND STOOL UA Leuk Est Large *ABN* (12/28/13 9:25 PM) Negative 12/29/2013 [facility] URINE AND STOOL UA Nitrite Positive *ABN* (12/28/13 9:25 PM) Negative 12/29/2013 [facility] URINE AND STOOL UA Sq Epi Occasional /LPF Few /LPF 12/29/2013 [facility] URINE AND STOOL UA WBC 81 0 - 5 12/29/2013 [facility] URINE AND STOOL UA pH 6.0 5.0 - 8.0 12/29/2013 [facility] URINE AND STOOL UA Protein Negative mg/dL Negative mg/dL 12/29/2013 [facility] URINE AND STOOL UA Ketones Negative mg/dL Negative mg/dL 12/29/2013 [facility] URINE AND STOOL UA Glucose Negative mg/dL Negative mg/dL 12/29/2013 [facility] URINE AND STOOL UA Color Yellow *NA* (12/28/13 9:25 PM) Yellow 12/29/2013 [facility] URINE AND STOOL UA Blood Moderate *ABN* (12/28/13 9:25 PM) Negative 12/29/2013 [facility] URINE AND STOOL UA Bili Negative *NA* (12/28/13 9:25 PM) Negative 12/29/2013 [facility] URINE AND STOOL UA Urobilinogen 2.0 0.1 - 1.0 12/29/2013 [facility] URINE AND STOOL UA Spec Grav 1.003 <=1.030 12/29/2013 [facility] URINE AND STOOL UA Turbidity Marked *ABN* (12/28/13 9:25 PM) Clear 12/29/2013 [facility] CHEM PANEL Lipase Lvl 66 73 - 393 12/29/2013 [facility] CHEM PANEL A/G Ratio 0.8 0.7 - 1.6 12/29/2013 [facility] CHEM PANEL Globulin 3.9 2.0 - 4.0 12/29/2013 [facility] CHEM PANEL B/C Ratio 13 6 - 25 12/29/2013 [facility] CHEM PANEL Alk Phos 96 39 - 136 12/29/2013 [facility] CHEM PANEL Bili Total 0.7 0.2 - 1.3 12/29/2013 [facility] CHEM PANEL AST 14 0 - 37 12/29/2013 [facility] CHEM PANEL ALT 15 0 - 65 12/29/2013 [facility] CHEM PANEL Albumin Lvl 3.1 3.5 - 5.0 12/29/2013 [facility] CHEM PANEL Total Protein 7.0 6.4 - 8.4 12/29/2013 [facility] HEMATOLOGY Lymphocytes # 1.5 1.0 - 5.5 12/29/2013 [facility] HEMATOLOGY Basophils 0.1 0.0 - 1.0 12/29/2013 [facility] HEMATOLOGY Segs-Bands # 7.3 1.5 - 8.1 12/29/2013 [facility] HEMATOLOGY Basophils # 0.0 0.0 - 0.2 12/29/2013 [facility] HEMATOLOGY Monocytes # 1.0 0.0 - 0.8 12/29/2013 [facility] HEMATOLOGY Eosinophils # 0.1 0.0 - 0.5 12/29/2013 [facility] HEMATOLOGY Eosinophils 0.8 0.0 - 4.0 12/29/2013 [facility] HEMATOLOGY Lymphocytes 14.9 20.0 - 40.0 12/29/2013 [facility] HEMATOLOGY Monocytes 10.4 2.0 - 12.0 12/29/2013 [facility] HEMATOLOGY Segs 73.8 45.0 - 75.0 12/29/2013 [facility] Pathology Reports No Data Provided for This Section Diagnostic Reports Report Value Date Source Esophagus BA swallow function video DX Esophagus BA swallow function video DX Modified barium swallow: CLINICAL HISTORY: Dysphagia, feeding difficulties Fluoro time: .3min Total DAP: [id number] Dr. Lopez - r13.10 dysphagia TECHNIQUE: Fluoroscopic assistance was provided for the speech pathologist for modified barium swallow examination. Varying consistencies of barium were administered po. FINDINGS: No significant oral delay is noted with liquid barium and barium with solids. No evidence for aspiration or any significant laryngeal penetration with thin consistency barium and nectar consistency barium. No evidence for aspiration or any significant laryngeal penetration with pudding consistency barium and barium with cracker preparations. Please, see report by speech pathologist for more detailed assessment. IMPRESSION: Normal study. SL: [id number] 02/11/2017 [facility] Chest 1view DX Examination: Chest x-ray, single view History: Dizziness Comparison: None. Findings: The lungs are clear and without focal consolidation. The cardiomediastinal silhouette is within normal limits. No pleural effusion or pneumothorax is seen. Fusion hardware in the lower cervical spine is seen. IMPRESSION: No acute cardiopulmonary disease. SL: 16 11/08/2014 [facility] Abdomen/Pelvis w IV contrast CT CT ABDOMEN AND PELVIS WITH CONTRAST: CLINICAL HISTORY: Acute abdominal pain TECHNIQUE AND FINDINGS: Multiple contiguous transaxial postcontrast CT images were obtained through the abdomen and pelvis. COMPARISON: No prior similar examinations are currently available for comparison. CT ABDOMEN WITH CONTRAST: 1. Heterogeneous enhancement of both kidneys suspicious for nephritis or pyelonephritis. No focal renal lesion, nephrolithiasis, or ureterolithiasis. 2. Non-specific bowel gas pattern without obstruction with postoperative change involving the underdistended thickwalled stomach. The appendix is not visualized with certainty, but no pericecal inflammatory change is present. 3. Mildly contracted gallbladder with mild central biliary dilatation. 4. Normal liver, pancreas, spleen, adrenal glands, heart size, adverse chronic abdominal aorta, and lung bases. 5. Scattered small to minimally enlarged retroperitoneal mesenteric lymph nodes. 6. Mild to moderate spinal degenerative changes without acute injury or suspicious focal osseous lesion. No acute fracture, dislocation, or focal osseous lesion is appreciated. CT PELVIS WITH CONTRAST: 1. Normal urinary bladder. 2. Absent uterus. Nonvisualized ovaries. 3. No lymphadenopathy or mass. 4. No acute fracture, dislocation, or focal osseous lesion is appreciated. SL:17 12/28/2013 [facility] Consultation Notes No Data Provided for This Section Discharge Summaries No Data Provided for This Section History and Physicals No Data Provided for This Section Vital Signs Vital Sign Value Date Comments Source Systolic (mm Hg) 145 11/08/2014 [facility] Diastolic (mm Hg) 66 11/08/2014 [facility] Respitory Rate 21 11/08/2014 [facility] Heart Rate 76 11/08/2014 [facility] Temperature Oral (F) 98.0 F 11/08/2014 [facility] Systolic (mm Hg) 145 11/08/2014 [facility] Diastolic (mm Hg) 66 11/08/2014 [facility] Heart Rate 69 11/08/2014 [facility] Respitory Rate 19 11/08/2014 [facility] BMI Calculated 24.18 11/08/2014 [facility] Weight 65.909 11/08/2014 [facility] Heart Rate 73 11/08/2014 [facility] Respitory Rate 14 11/08/2014 [facility] Systolic (mm Hg) 156 11/08/2014 [facility] Diastolic (mm Hg) 76 11/08/2014 [facility] Height 165.1 cm 11/08/2014 [facility] Temperature Oral (F) 97.9 F 11/08/2014 [facility] Heart Rate 60 01/01/2014 [facility] Temperature Oral (F) 97.9 F 01/01/2014 [facility] Respitory Rate 14 01/01/2014 [facility] Diastolic (mm Hg) 63 01/01/2014 [facility] Systolic (mm Hg) 148 01/01/2014 [facility] Respitory Rate 16 01/01/2014 [facility] Diastolic (mm Hg) 73 01/01/2014 [facility] Systolic (mm Hg) 126 01/01/2014 [facility] Heart Rate 81 01/01/2014 [facility] Temperature Oral (F) 98.7 F 01/01/2014 [facility] Diastolic (mm Hg) 66 01/01/2014 [facility] Heart Rate 65 01/01/2014 [facility] Temperature Oral (F) 98 F 01/01/2014 [facility] Systolic (mm Hg) 128 01/01/2014 [facility] Respitory Rate 16 01/01/2014 [facility] BMI Calculated 24.18 12/29/2013 [facility] Height 165.1 cm 12/29/2013 [facility] Weight 65.909 12/29/2013 [facility] Weight 65.909 12/29/2013 [facility] BMI Calculated 24.18 12/29/2013 [facility] Height 165.1 cm 12/29/2013 [facility] Encounters Location Location Details Encounter Type Encounter Number Reason For Visit Attending Provider ADM Date DC Date Status Source [facility] Inpatient [id number] Best Cornejo 12/28/2013 01/01/2014 [facility] [id number] En Maradiaga 11/08/2014 11/08/2014 [facility] Outpatient [id number] Reynaldo Alfonso 02/11/2017 02/12/2017 [facility] Procedures Procedure Code Date Perfomer Comments Source Appendectomy [id number] [facility] Bilateral inguinal hernia repair [id number] [facility] Bilateral mastectomy [id number] [facility] Hysterectomy [id number] [facility] Marcelina fundoplication [id number] [facility] Resection of descending colon [id number] [facility] Suspension of bladder [id number] [facility] Tonsillectomy [id number] [facility] Assessment and Plan Assessment and Plan Date Source Extracted from:Title: Clinical Document Author: Jerry Dougherty MD Date: 01/01/14 IM PROGRESS NOTE (Dr. Jerry Dougherty M.D.) SUBJECTIVE Doing better; no SOB or CP Vitals and Temp: Vitals Tmp(F) Pulse BP RR SpO2 FIO2 01/01 08:00 97.9 60 148/63 14 98 --- 01/01 03:53 98.7 81 126/73 16 98 --- 12/31 23:56 98 65 128/66 16 94 --- 12/31 21:01 98 64 149/75 15 99 --- 12/31 16:00 97.9 59 144/76 14 --- --- 24 Hr Tmax: 98.7F (37.06c) at 01/01 03:53 Vital Signs are the last 5 in the past 48 hours. OBJECTIVE: HEENT: NC/AT, PERRL, EOMI, OP: clear, no lesion NECK: Supple, no JVD CVS: RRR, S1, S2, 2/6 syst. murmur LUNGS: Good upper airway entry, CTA ABD: S/NT/ND, no hepatosplenomegaly, no guarding, no rebound tenderness, good bowel sound EXT: no C/C/E, pulse 2+ NEURO: awake, talking, moving bilateral extremities; strength 5/5, CN II-XII intact; sensory intact. Scheduled Meds (3): 12/29/13 cefepime + Sodium Chloride 0.9% IV 100 mL 1 gm IVPB [id number] 200 ml/hr 12/29/13 ciprofloxacin (Cipro I.V. 400 mg/200 mL intravenous solution) 400 mg IVPB [id number] 200 ml/hr 12/29/13 pantoprazole (Protonix) 40 mg PO Before Dinner PRN Meds (4): 12/29/13 acetaminophen-hydrocodone (acetaminophen-hydrocodone 325 mg-5 mg oral tablet) 1 tab PO Q4H 12/29/13 acetaminophen (Tylenol) 650 mg PO Q4H 12/31/13 magnesium hydroxide (Milk of Magnesia) 30 ml PO Q6H 12/29/13 ondansetron (Zofran) 4 mg IV Q8H Labs (Last four charted values) WBC 6.4 (JAN 01) 5.5 (DEC 31) 6.3 (DECEMBER 30) 9.9 (DECEMBER 28) Hgb L 11.3 (JAN 01) L 10.8 (DEC 31) L 11.8 (DECEMBER 30) 12.2 (DECEMBER 28) Hct L 32.6 (JAN 01) L 32.2 (DEC 31) L 34.6 (DECEMBER 30) L 35.4 (DECEMBER 28) Plt 393 (JAN 01) 379 (DEC 31) 348 (DECEMBER 30) 295 (DECEMBER 28) Na 141 (JAN 01) 142 (DEC 31) 140 (DECEMBER 30) 135 (DECEMBER 28) K 4.3 (JAN 01) 3.6 (DEC 31) L 3.4 (DECEMBER 30) L 3.3 (DECEMBER 28) CO2 26 (JAN 01) 24 (DEC 31) 25 (DECEMBER 30) 28 (DECEMBER 28) Cl 107 (JAN 01) 109 (DEC 31) 106 (DECEMBER 30) 101 (DECEMBER 28) Cr 0.8 (JAN 01) 0.7 (DEC 31) 0.8 (DECEMBER 30) 0.7 (DECEMBER 28) BUN 11 (JAN 01) 7 (DEC 31) 8 (DECEMBER 30) 9 (DECEMBER 28) Glucose Random 91 (JAN 01) H 105 (DEC 31) 90 (DECEMBER 30) H 103 (DECEMBER 28) Mg 2.1 (JAN 01) 2.1 (DEC 31) 2.1 (DECEMBER 30) Phos 3.7 (JAN 01) 3.3 (DEC 31) 3.3 (DECEMBER 30) Ca L 8.4 (JAN 01) 8.6 (DEC 31) L 8.4 (DECEMBER 30) 9.0 (DECEMBER 28) IMPRESSION and PLAN DIAGNOSIS: 1. Gram Negative Sepsis with E. Coli bacteremia from acute bilateral pyelonephritis. 2. hypertension. 3. Dehydration with hypovolemia. 4. Hypokalemia. 5. Hyponatremia. 6. Hypoalbuminemia. 7. Constipation PLAN: D/C home Discharge Summary dictated F/U with PCP- Dr. Gil Cornejo 01/01/2014 [facility] Plan of Care No Data Provided for This Section Social History Social History Date Source Social History TypeResponse Alcohol Never Smoking Status Never smoker; Exposure to Tobacco Smoke None; Cigarette Smoking Last 365 Days No; Reg Smoking Cessation Counseling No 12/29/2013 [facility] Family History No Data Provided for This Section Advance Directives No Data Provided for This Section Functional Status No Data Provided for This Section
--- OUTSIDE RECORDS SUMMARY | 2019-02-13 11:17 | XMS REPORT | Summary of Care ---
Author Author [facility] Organization [facility] Address Unknown Phone Unavailable Encounter NAYELI Vilchis(DARCIE) [id number] Date(s): 02/11/17 - 02/11/17 [facility] [address] [place] [address]- [phone] Discharge Disposition: Home or Self Care Attending Physician: Reynaldo Alfonso MD Referring Physician: Reynaldo Alfonso MD Vital Signs No data available for this section Problem List Condition Effective Dates Status Health Status Informant Chronic Active gastritis(Confirmed) OA Active (osteoarthritis)(Con firmed) Rectal Active prolapse(Confirmed) Sjogrens Active syndrome(Confirmed) Allergies, Adverse Reactions, Alerts Substance Reaction Severity Status azithromycin Active Food Lactose Intolerance Active (Restricts Milk/Milk Products) Food Pork Active Food Shellfish Active NSAIDs Active penicillins Active sulfa drugs Active Medications No data available for this section Results No data available for this section Immunizations No data available for this section Procedures Procedure Date Related Diagnosis Body Site Appendectomy Bilateral inguinal hernia repair Bilateral mastectomy Hysterectomy Marcelina fundoplication Resection of descending colon Suspension of bladder Tonsillectomy Social History Social History Type Response Alcohol Never Smoking Status Never smoker; Exposure to Tobacco Smoke None; Cigarette Smoking Last 365 Days No; Reg Smoking Cessation Counseling No Assessment and Plan No data available for this section
--- OUTSIDE RECORDS SUMMARY | 2019-02-13 11:17 | XMS REPORT | Summary of Care ---
Author Organization Unknown Address Unknown Phone Unavailable Encounter [facility](DARCIE) [id number] Date(s): 12/28/13 - 01/01/14 [facility] [address] [address] - [facility] Discharge Disposition: Home Physician Attending: Best Cornejo MD Physician Admitting: Best Cornejo MD Reason for Visit PYELONEPHRITIS Vital Signs 1 2 3 Most recent to oldest [Reference Range]: 165.1 cm (12/29/13 2:05 AM) 165.1 cm (12/28/13 7:10 PM) Height 97.9 DegF (01/01/14 8:00 AM) 98.7 DegF (01/01/14 3:53 AM) 98 DegF (12/31/13 11:56 PM) Temperature Oral [96.4-99.1 DegF] 148 mmHg *HI* (01/01/14 8:00 AM) 126 mmHg (01/01/14 3:53 AM) 128 mmHg (12/31/13 11:56 PM) Systolic Blood Pressure [90-140 mmHg] 63 mmHg (01/01/14 8:00 AM) 73 mmHg (01/01/14 3:53 AM) 66 mmHg (12/31/13 11:56 PM) Diastolic Blood Pressure [60-90 mmHg] 14 BRMIN (01/01/14 8:00 AM) 16 BRMIN (01/01/14 3:53 AM) 16 BRMIN (12/31/13 11:56 PM) Respiratory Rate [14-20 BRMIN] 60 bpm (01/01/14 8:00 AM) 81 bpm (01/01/14 3:53 AM) 65 bpm (12/31/13 11:56 PM) Peripheral Pulse Rate [60-100 bpm] 65.909 kg (12/29/13 2:05 AM) 65.909 kg (12/28/13 7:10 PM) Weight 24.18 m2 (12/29/13 2:05 AM) 24.18 m2 (12/28/13 7:10 PM) Body Mass Index Problem List Condition Effective Dates Status Health Status Informant Chronic Active gastritis(Confirmed) Allergies, Adverse Reactions, Alerts Substance Reaction Severity Status Mycinette Sore Throat Active Uriah penicillins Active sulfa drugs Active Medications acetaminophen-hydrocodone 325 mg-5 mg oral tablet 1 tab, Route: PO, Drug Form: TAB, Dosing Weight 65.909, kg, Q4H, PRN Pain Score 1-3, Start date: 12/29/13 1:18:00, Duration: 30 day, Stop date: 01/28/14 1:17:00 Notes: (Same as: [place] 325/5) Do not exceed 4gm/day of acetaminophen. Start Date: 12/29/13 Stop Date: 01/01/14 Status: Discontinued cefepime + Sodium Chloride 0.9% IV 100 mL 1 gm, Route: IVPB, [id number], Dosing Weight 65.909, kg, (CrCl 30 - 49 ml/min), Sta rt date: 12/29/13 12:00:00, Duration: 30 day, Stop date: 01/28/14 0:00:00 Notes: (Same As: Maxipime) Start Date: 12/29/13 Stop Date: 01/01/14 Status: Discontinued cefTRIAXone + Sodium Chloride 0.9% IV 100 mL 1 gm, Route: IVPB, ONCE, Dosing Weight 65.909, kg, Priority: STAT, Start date: 0 12/28/13 20:35:00, Stop date: 12/28/13 20:35:00 Notes: (Same As: Rocephin). Use with 100ml NS mini-bag PLUS and infuse over 30 min Start Date: 12/28/13 Stop Date: 12/28/13 Status: Completed cefTRIAXone + Sodium Chloride 0.9% IV 100 mL 1 gm, Route: IVPB, [id number], Dosing Weight 65.909, kg, Priority: STAT, Start date : 12/29/13 1:18:00, Duration: 30 day, Stop date: 01/27/14 1:18:00 Notes: (Same As: Rocephin). Use with 100ml NS mini-bag PLUS and infuse over 30 min Start Date: 12/29/13 Stop Date: 12/29/13 Status: Deleted Cipro I.V. 400 mg/200 mL intravenous solution 400 mg, 200 mL, Route: IVPB, Drug form: INJ, [id number], Dosing Weight 65.909, kg, Start date: 12/29/13 12:00:00, Duration: 30 day, Stop date: 01/28/14 0:00:00 Notes: Do not refrigerate Start Date: 12/29/13 Stop Date: 01/01/14 Status: Discontinued Florastor 250 mg oral capsule 250 mg=1 cap, PO, BID, 0 Refill(s) Start Date: 12/28/13 Status: Ordered ketorolac 30 mg, 1 mL, Route: IVP, Drug form: INJ, ONCE, Dosing Weight 65.909, kg, Priorit y: STAT, Start date: 12/28/13 20:40:00, Stop date: 12/28/13 20:40:00 Notes: (Same as:Toradol) IV bolus must be given >15 seconds. Give IM administration slowly and deeply into the muscle. Not for use > 4 days Start Date: 12/28/13 Stop Date: 12/28/13 Status: Completed Levaquin 500 mg oral tablet 500 mg=1 tab, PO, Daily, # 10 tab, 0 Refill(s) Start Date: 01/01/14 Stop Date: 01/11/14 Status: Ordered Melatonin 1 mg oral tablet 1 mg=1 tab, PO, Bedtime, for insomnia, # 90 tab, 0 Refill(s) Start Date: 12/28/13 Status: Ordered Milk of Magnesia 30 ml, Route: PO, Drug Form: SUSP, Dosing Weight 65.909, kg, Q6H, PRN Constipati on, Start date: 12/31/13 9:31:00, Duration: 30 day, Stop date: 01/30/14 9:30:00 Notes: (Same as: Milk of Magnesia, MOM) Start Date: 12/31/13 Stop Date: 01/01/14 Status: Discontinued NS 1,000 mL 1,000 mL, Rate: 60 ml/hr, Infuse over: 16.7 hr, Route: IV, Dosing Weight 65.909 kg, Total Volume: 1,000, Start date: 12/29/13 11:50:00, Duration: 2 doses or leonora es, Stop date: 12/30/13 21:13:00 Start Date: 12/29/13 Stop Date: 12/30/13 Status: Completed potassium chloride 20 mEq, 1 tab, Route: PO, Drug form: ERTAB, ONCE, Dosing Weight 65.909, kg, Star t date: 12/29/13 5:19:00, Stop date: 12/29/13 5:19:00 Notes: (Same as: K-Dur 20)"Do Not Crush" With food and full glass of water Start Date: 12/29/13 Stop Date: 12/29/13 Status: Completed potassium chloride 20 mEq, 1 tab, Route: PO, Drug form: ERTAB, ONCE, Dosing Weight 65.909, kg, Star t date: 12/30/13 10:41:00, Stop date: 12/30/13 10:41:00 Notes: (Same as: K-Dur 20)"Do Not Crush" With food and full glass of water Start Date: 12/30/13 Stop Date: 12/30/13 Status: Completed Protonix 40 mg, 1 tab, Route: PO, Drug form: ECTAB, Before Dinner, Dosing Weight 65.909, kg, Start date: 12/29/13 16:30:00, Duration: 30 day, Stop date: 01/27/14 16:30:0 0 Notes: Tablet should not be chewed or crushed.(Same as: Protonix) Start Date: 12/29/13 Stop Date: 01/01/14 Status: Discontinued Rocephin + Sodium Chloride 0.9% IV 100 mL 1 gm, Route: IVPB, [id number], Start date: 12/29/13 22:30:00, Duration: 30 day, Sto p date: 01/27/14 22:30:00 Notes: (Same As: Rocephin). Use with 100ml NS mini-bag PLUS and infuse over 30 min Start Date: 12/29/13 Stop Date: 12/29/13 Status: Canceled Saline Flush 0.9% 5 mL, Route: IVP, Drug Form: INJ, kg, PRN, PRN Line Flush, Start date: 12/28/13 19:07:00, Duration: 24 hr, Stop date: 12/29/13 19:06:00 Notes: (Same as: BD Posiflush) Start Date: 12/28/13 Stop Date: 12/29/13 Status: Completed Tylenol 650 mg, 2 tab, Route: PO, Drug form: TAB, Q4H, Dosing Weight 65.909, kg, PRN Fev er, Start date: 12/29/13 11:49:00, Duration: 30 day, Stop date: 01/28/14 11:48:0 0 Notes: Do not exceed 4 gm/day. (Same as: Tylenol) Start Date: 12/29/13 Stop Date: 01/01/14 Status: Discontinued Zofran 4 mg, 2 mL, Route: IV, Drug form: INJ, Q8H, Dosing Weight 65.909, kg, PRN Nausea , Start date: 12/29/13 11:51:00, Duration: 30 day, Stop date: 01/28/14 11:50:00 Notes: (Same as: Zofran) Start Date: 12/29/13 Stop Date: 01/01/14 Status: Discontinued Results ELECTROLYTES 1 2 3 Most recent to oldest [Reference Range]: 141 mEq/L (01/01/14 3:50 AM) 142 mEq/L (12/31/13 3:42 AM) 140 mEq/L (12/30/13 5:05 AM) Sodium Lvl [135-145 mEq/L] 4.3 mEq/L (01/01/14 3:50 AM) 3.6 mEq/L (12/31/13 3:42 AM) 3.4 mEq/L *LOW* (12/30/13 5:05 AM) Potassium Lvl [3.5-5.1 mEq/L] 107 mEq/L (01/01/14 3:50 AM) 109 mEq/L (12/31/13 3:42 AM) 106 mEq/L (12/30/13 5:05 AM) Chloride Lvl [95-109 mEq/L] 26 mEq/L (01/01/14 3:50 AM) 24 mEq/L (12/31/13 3:42 AM) 25 mEq/L (12/30/13 5:05 AM) CO2 [24-32 mEq/L] 12.3 mEq/L (01/01/14 3:50 AM) 12.6 mEq/L (12/31/13 3:42 AM) 12.4 mEq/L (12/30/13 5:05 AM) AGAP [10.0-20.0 mEq/L] CHEM PANEL 1 2 3 Most recent to oldest [Reference Range]: 0.8 mg/dL (01/01/14 3:50 AM) 0.7 mg/dL (12/31/13 3:42 AM) 0.8 mg/dL (12/30/13 5:05 AM) Creatinine Lvl [0.5-1.4 mg/dL] 72 mL/min/1.73m2 1 *NA* (01/01/14 3:50 AM) 84 mL/min/1.73m2 2 *NA* (12/31/13 3:42 AM) 72 mL/min/1.73m2 3 *NA* (12/30/13 5:05 AM) eGFR 11 mg/dL (01/01/14 3:50 AM) 7 mg/dL (12/31/13 3:42 AM) 8 mg/dL (12/30/13 5:05 AM) BUN [7-22 mg/dL] 13 (12/28/13 8:50 PM) B/C Ratio [6-25] 91 mg/dL 4 (01/01/14 3:50 AM) 105 mg/dL 5 *HI* (12/31/13 3:42 AM) 90 mg/dL 6 (12/30/13 5:05 AM) Glucose Lvl [70-99 mg/dL] 7.0 g/dL (12/28/13 8:50 PM) Total Protein [6.4-8.4 g/dL] 3.1 g/dL *LOW* (12/28/13 8:50 PM) Albumin Lvl [3.5-5.0 g/dL] 3.9 g/dL (12/28/13 8:50 PM) Globulin [2.0-4.0 g/dL] 0.8 (12/28/13 8:50 PM) A/G Ratio [0.7-1.6] 8.4 mg/dL *LOW* (01/01/14 3:50 AM) 8.6 mg/dL (12/31/13 3:42 AM) 8.4 mg/dL *LOW* (12/30/13 5:05 AM) Calcium Lvl [8.5-10.5 mg/dL] 3.7 mg/dL (01/01/14 3:50 AM) 3.3 mg/dL (12/31/13 3:42 AM) 3.3 mg/dL (12/30/13 5:05 AM) Phosphorus [2.5-4.5 mg/dL] 2.1 mg/dL (01/01/14 3:50 AM) 2.1 mg/dL (12/31/13 3:42 AM) 2.1 mg/dL (12/30/13 5:05 AM) Magnesium Lvl [1.8-2.4 mg/dL] 15 unit/L (12/28/13 8:50 PM) ALT [0-65 unit/L] 14 unit/L (12/28/13 8:50 PM) AST [0-37 unit/L] 96 unit/L (12/28/13 8:50 PM) Alk Phos [39-136 unit/L] 0.7 mg/dL (12/28/13 8:50 PM) Bili Total [0.2-1.3 mg/dL] 66 unit/L *LOW* (12/28/13 8:50 PM) Lipase Lvl [73-393 unit/L] 1.1 mMol/L (12/28/13 10:00 PM) Lactic Acid Lvl [0.5-2.2 mMol/L] 1Result Comment: The eGFR is calculated using the CKD-EPI formula. In most young, healthy individuals the eGFR will be >90 mL/min/1.73m2. The eGFR declines with age. An eGFR of 60-89 may be normal in some populations, particularly the elderly, for whom the CKD-EPI formula has not been extensively validated. Use of the eGFR is not recommended in the following populations: Individuals with unstable creatinine concentrations, including patients and those with serious co-morbid conditions. Patients with extremes in muscle mass or diet. The data above are obtained from the National Kidney Disease Education Program ( NKDEP) which additionally recommends that when the eGFR is used in patients with extremes of body mass index for purposes of drug dosing, the eGFR should be mul tiplied by the estimated BMI. 2Result Comment: The eGFR is calculated using the CKD-EPI formula. In most young, healthy individuals the eGFR will be >90 mL/min/1.73m2. The eGFR declines with age. An eGFR of 60-89 may be normal in some populations, particularly the elderly, for whom the CKD-EPI formula has not been extensively validated. Use of the eGFR is not recommended in the following populations: Individuals with unstable creatinine concentrations, including patients and those with serious co-morbid conditions. Patients with extremes in muscle mass or diet. The data above are obtained from the National Kidney Disease Education Program ( NKDEP) which additionally recommends that when the eGFR is used in patients with extremes of body mass index for purposes of drug dosing, the eGFR should be mul tiplied by the estimated BMI. 3Result Comment: The eGFR is calculated using the CKD-EPI formula. In most young, healthy individuals the eGFR will be >90 mL/min/1.73m2. The eGFR declines with age. An eGFR of 60-89 may be normal in some populations, particularly the elderly, for whom the CKD-EPI formula has not been extensively validated. Use of the eGFR is not recommended in the following populations: Individuals with unstable creatinine concentrations, including patients and those with serious co-morbid conditions. Patients with extremes in muscle mass or diet. The data above are obtained from the National Kidney Disease Education Program ( NKDEP) which additionally recommends that when the eGFR is used in patients with extremes of body mass index for purposes of drug dosing, the eGFR should be mul tiplied by the estimated BMI. 4Interpretive Data: Adult reference range values reflect the clinical guidelines of the [place] [employer]. 5Interpretive Data: Adult reference range values reflect the clinical guidelines of the [place] [employer]. 6Interpretive Data: Adult reference range values reflect the clinical guidelines of the [place] [employer]. SPECIAL CHEMISTRY 1 2 3 Most recent to oldest [Reference Range]: 4.6 % (12/30/13 5:05 AM) Hgb A1C [<=5.6 %] ANEMIA STUDY 1 2 3 Most recent to oldest [Reference Range]: 41 ug/dl (01/01/14 3:50 AM) Iron [30-160 ug/dl] 18 % (01/01/14 3:50 AM) % Satur Fe [12-57 %] 188 ug/dl (01/01/14 3:50 AM) UIBC [110-370 ug/dl] 604 pg/mL (01/01/14 3:50 AM) Vitamin B12 Lvl [254-1320 pg/mL] 12.5 ng/mL (01/01/14 3:50 AM) Folate Lvl [>=3.0 ng/mL] 229 ug/dl (01/01/14 3:50 AM) TIBC [228-428 ug/dl] THYROID PANEL 1 2 3 Most recent to oldest [Reference Range]: 1.160 uIU/mL (12/30/13 5:05 AM) TSH [0.360-3.740 uIU/mL] URINE AND STOOL 1 2 3 Most recent to oldest [Reference Range]: Marked *ABN* (12/28/13 9:25 PM) UA Turbidity [Clear] Yellow *NA* (12/28/13 9:25 PM) UA Color [Yellow] 6.0 (12/28/13 9:25 PM) UA pH [5.0-8.0] 1.003 (12/28/13 9:25 PM) UA Spec Grav [<=1.030] Negative mg/dL *NA* (12/28/13 9:25 PM) UA Glucose [Negative mg/dL] Moderate *ABN* (12/28/13 9:25 PM) UA Blood [Negative] Negative mg/dL *NA* (12/28/13 9:25 PM) UA Ketones [Negative mg/dL] Negative mg/dL (12/28/13 9:25 PM) UA Protein [Negative mg/dL] 2.0 mg/dL *HI* (12/28/13 9:25 PM) UA Urobilinogen [0.1-1.0 mg/dL] Negative *NA* (12/28/13 9:25 PM) UA Bili [Negative] Large *ABN* (12/28/13 9:25 PM) UA Leuk Est [Negative] Positive *ABN* (12/28/13 9:25 PM) UA Nitrite [Negative] 81 /HPF *HI* (12/28/13 9:25 PM) UA WBC [0-5 /HPF] 9 /HPF *HI* (12/28/13 9:25 PM) UA RBC [0-2 /HPF] Occasional /HPF *NA* (12/28/13 9:25 PM) UA Bacteria [None Seen /HPF] Occasional /LPF *NA* (12/28/13 9:25 PM) UA Sq Epi [Few /LPF] Occasional /HPF *ABN* (12/28/13 9:25 PM) UA [place] Yeast [None Seen /HPF] HEMATOLOGY 1 2 3 Most recent to oldest [Reference Range]: 6.4 K/CMM (01/01/14 3:50 AM) 5.5 K/CMM (12/31/13 3:42 AM) 6.3 K/CMM (12/30/13 5:05 AM) WBC [3.7-10.4 K/CMM] 3.30 M/CMM *LOW* (01/01/14 3:50 AM) 3.24 M/CMM *LOW* (12/31/13 3:42 AM) 3.50 M/CMM *LOW* (12/30/13 5:05 AM) RBC [4.20-5.40 M/CMM] 11.3 g/dL *LOW* (01/01/14 3:50 AM) 10.8 g/dL *LOW* (12/31/13 3:42 AM) 11.8 g/dL *LOW* (12/30/13 5:05 AM) Hgb [12.0-16.0 g/dL] 32.6 % *LOW* (01/01/14 3:50 AM) 32.2 % *LOW* (12/31/13 3:42 AM) 34.6 % *LOW* (12/30/13 5:05 AM) Hct [36.0-48.0 %] 98.8 fL (01/01/14 3:50 AM) 99.2 fL *HI* (12/31/13 3:42 AM) 98.9 fL (12/30/13 5:05 AM) MCV [81.0-99.0 fL] 34.2 pg *HI* (01/01/14 3:50 AM) 33.4 pg *HI* (12/31/13 3:42 AM) 33.6 pg *HI* (12/30/13 5:05 AM) MCH [27.0-31.0 pg] 34.6 g/dL (01/01/14 3:50 AM) 33.6 g/dL (12/31/13 3:42 AM) 33.9 g/dL (12/30/13 5:05 AM) MCHC [32.0-36.0 g/dL] 12.2 % (01/01/14 3:50 AM) 12.1 % (12/31/13 3:42 AM) 11.9 % (12/30/13 5:05 AM) RDW [11.5-14.5 %] 393 K/CMM (01/01/14 3:50 AM) 379 K/CMM (12/31/13 3:42 AM) 348 K/CMM (12/30/13 5:05 AM) Platelet [133-450 K/CMM] 8.9 fL (01/01/14 3:50 AM) 8.9 fL (12/31/13 3:42 AM) 8.7 fL (12/30/13 5:05 AM) MPV [7.4-10.4 fL] 73.8 % (12/28/13 8:50 PM) Segs [45.0-75.0 %] 14.9 % *LOW* (12/28/13 8:50 PM) Lymphocytes [20.0-40.0 %] 10.4 % (12/28/13 8:50 PM) Monocytes [2.0-12.0 %] 0.8 % (12/28/13 8:50 PM) Eosinophils [0.0-4.0 %] 0.1 % (12/28/13 8:50 PM) Basophils [0.0-1.0 %] 7.3 K/CMM (12/28/13 8:50 PM) Segs-Bands # [1.5-8.1 K/CMM] 1.5 K/CMM (12/28/13 8:50 PM) Lymphocytes # [1.0-5.5 K/CMM] 1.0 K/CMM *HI* (12/28/13 8:50 PM) Monocytes # [0.0-0.8 K/CMM] 0.1 K/CMM (12/28/13 8:50 PM) Eosinophils # [0.0-0.5 K/CMM] 0.0 K/CMM (12/28/13 8:50 PM) Basophils # [0.0-0.2 K/CMM] Medications Administered During Your Visit No data available for this section Immunizations No data available for this section Procedures Procedure Type Body Site Date of Procedure Related Diagnosis Appendectomy Bilateral inguinal hernia repair Bilateral mastectomy Hysterectomy Suspension of bladder Tonsillectomy Social History Social History Type Response Alcohol Use: Never Smoking Status Never smoker, Exposure to Tobacco Smoke None, Cigarette Smoking Last 365 Days No, Reg Smoking Cessation Counseling No Assessment and Plan Extracted from: Title: Clinical Document Author: Jerry Dougherty MD Date: 01/01/14 IM PROGRESS NOTE (Dr. Jerry Dougherty M.D.) SUBJECTIVE Doing better; no SOB or CP Vitals and Temp: VitalsTmp(F)[id number] 01/01 08:[id number]--- 01/01 03:[id number]--- 12/31 23:[id number]--- 12/31 21:[id number]--- 12/31 16:0097.980974/7614------ 24 Hr Tmax: 98.7F (37.06c) at 01/01 03:53Vital Signs are the last 5 in the [...] 0.9% IV 100 mL 1 gm IVPB [id number] 200 ml/hr 12/29/13 ciprofloxacin (Cipro I.V. 400 mg/200 mL intravenous solution) 400 mg IVPB [id number] 200 ml/hr 12/29/13 pantoprazole (Protonix) 40 mg PO Before Dinner PRN Meds (4): 12/29/13 acetaminophen-hydrocodone (acetaminophen-hydrocodone 325 mg-5 mg oral tablet) 1 tab PO Q4H 12/29/13 acetaminophen (Tylenol) 650 mg PO Q4H 12/31/13 magnesium hydroxide (Milk of Magnesia) 30 ml PO Q6H 12/29/13 ondansetron (Zofran) 4 mg IV Q8H Labs (Last four charted values) WBC 6.4(JAN 01)5.5(DEC 31)6.3(DECEMBER 30)9.9(DECEMBER 28) Hgb L 11.3(JAN 01)L 10.8(DEC 31)L 11.8(DECEMBER 30)12.2(DECEMBER 28) Hct L 32.6(JAN 01)L 32.2(DEC 31)L 34.6(DECEMBER 30)L 35.4(DECEMBER 28) Plt 393(JAN 01)379(DEC 31)348(DECEMBER 30)295(DECEMBER 28) Na 141(JAN 01)142(DEC 31)140(DECEMBER 30)135(DECEMBER 28) K 4.3(JAN 01)3.6(DEC 31)L 3.4(DECEMBER 30)L 3.3(DECEMBER 28) CO2 26(JAN 01)24(DEC 31)25(DECEMBER 30)28(DECEMBER 28) Cl 107(JAN 01)109(DEC 31)106(DECEMBER 30)101(DECEMBER 28) Cr 0.8(JAN 01)0.7(DEC 31)0.8(DECEMBER 30)0.7(DECEMBER 28) BUN 11(JAN 01)7(DEC 31)8(DECEMBER 30)9(DECEMBER 28) Glucose Random 91(JAN 01)H 105(DEC 31)90(DECEMBER 30)H 103(DECEMBER 28) Mg 2.1(JAN 01)2.1(DEC 31)2.1(DECEMBER 30) Phos 3.7(JAN 01)3.3(DEC 31)3.3(DECEMBER 30) Ca L 8.4(JAN 01)8.6(DEC 31)L 8.4(DECEMBER 30)9.0(DECEMBER 28) IMPRESSION & PLAN DIAGNOSIS: 1. Gram Negative Sepsis with E. Coli bacteremia from acute bilateral pyelonephritis. 2. hypertension. 3. Dehydration with hypovolemia. 4. Hypokalemia. 5. Hyponatremia. 6. Hypoalbuminemia. 7. Constipation PLAN: D/C home Discharge Summary dictated F/U with PCP- Dr. Gil Cornejo
--- OUTSIDE RECORDS SUMMARY | 2019-02-13 11:19 | XMS REPORT | Summary of Care ---
Author Organization Unknown Address Unknown Phone Unavailable Encounter NAYELI Vilchis(DARCIE) [id number] Date(s): 11/08/14 - 11/08/14 [facility] [address] [place] [address]- Discharge Diagnosis: Vasovagal near syncope Discharge Disposition: Home Physician Attending: En Maradiaga MD Vital Signs 1 2 3 Most recent to oldest [Reference Range]: 165.1 cm (11/08/14 2:04 PM) Height 98.0 DegF (11/08/14 5:16 PM) 97.9 DegF (11/08/14 2:04 PM) Temperature Oral [96.4-99.1 DegF] 145/66 mmHg *HI* (11/08/14 5:16 PM) 145/66 mmHg *HI* (11/08/14 4:36 PM) 156/76 mmHg *HI* (11/08/14 2:04 PM) Blood Pressure [90-140/60-90 mmHg] 21 BRMIN *HI* (11/08/14 5:16 PM) 19 BRMIN (11/08/14 4:36 PM) 14 BRMIN (11/08/14 2:04 PM) Respiratory Rate [14-20 BRMIN] 76 bpm (11/08/14 5:16 PM) 69 bpm (11/08/14 4:36 PM) 73 bpm (11/08/14 2:04 PM) Peripheral Pulse Rate [60-100 bpm] 65.909 kg (11/08/14 2:04 PM) Weight 24.18 m2 (11/08/14 2:04 PM) Body Mass Index Problem List Condition Effective Dates Status Health Status Informant Chronic Active gastritis(Confirmed) OA Active (osteoarthritis)(Con firmed) Rectal Active prolapse(Confirmed) Sjogrens Active syndrome(Confirmed) Allergies, Adverse Reactions, Alerts Substance Reaction Severity Status azithromycin Active Food Lactose Intolerance Active (Restricts Milk/Milk Products) Food Pork Active Food Shellfish Active NSAIDs Active penicillins Active sulfa drugs Active Medications Saline Flush 0.9% 10 mL, Route: IVP, Drug Form: INJ, Dosing Weight 65.909, kg, PRN, PRN Line Flush , Start date: 11/08/14 14:31:00, Duration: 30 day, Stop date: 12/08/14 14:30:00 Notes: (Same as: BD Posiflush) Start Date: 11/08/14 Stop Date: 11/09/14 Status: Discontinued Sodium Chloride 0.9% (Bolus) IV 1,000 mL, 1,000 ml/hr, Infuse Over: 1 hr, Route: IV, ONCE, Priority: STAT, Dosin g Weight 65.909 kg, Start date: 11/08/14 14:31:00, Duration: 1 doses or times, S top date: 11/08/14 14:31:00 Start Date: 11/08/14 Stop Date: 11/08/14 Status: Completed Results ELECTROLYTES Most recent to 1 oldest [Reference Range]: Sodium Lvl [135-145 141 mEq/L mEq/L] (11/08/14 3:03 PM) Potassium Lvl 3.6 mEq/L [3.5-5.1 mEq/L] (11/08/14 3:03 PM) Chloride Lvl [95-109 107 mEq/L mEq/L] (11/08/14 3:03 PM) CO2 [24-32 mEq/L] 28 mEq/L (11/08/14 3:03 PM) AGAP [10.0-20.0 9.6 mEq/L mEq/L] *LOW* (11/08/14 3:03 PM) CHEM PANEL Most recent to 1 oldest [Reference Range]: Creatinine Lvl 0.9 mg/dL [0.5-1.4 mg/dL] (11/08/14 3:03 PM) eGFR 62 mL/min/1.73m2 1 *NA* (11/08/14 3:03 PM) BUN [7-22 mg/dL] 11 mg/dL (11/08/14 3:03 PM) B/C Ratio [6-25] 12 (11/08/14 3:03 PM) Glucose Lvl [70-99 105 mg/dL 2 mg/dL] *HI* (11/08/14 3:03 PM) Total Protein 7.5 g/dL [6.4-8.4 g/dL] (11/08/14 3:03 PM) Albumin Lvl [3.5-5.0 4.0 g/dL g/dL] (11/08/14 3:03 PM) Globulin [2.0-4.0 3.5 g/dL g/dL] (11/08/14 3:03 PM) A/G Ratio [0.7-1.6] 1.1 (11/08/14 3:03 PM) Calcium Lvl 9.0 mg/dL [8.5-10.5 mg/dL] (11/08/14 3:03 PM) ALT [0-65 unit/L] 20 unit/L (11/08/14 3:03 PM) AST [0-37 unit/L] 22 unit/L (11/08/14 3:03 PM) Alk Phos [39-136 100 unit/L unit/L] (11/08/14 3:03 PM) Bili Total [0.2-1.3 0.3 mg/dL mg/dL] (11/08/14 3:03 PM) Lactic Acid Lvl 1.0 mMol/L [0.5-2.2 mMol/L] (11/08/14 3:38 PM) 1Result Comment: The eGFR is calculated using [...] be mul tiplied by the estimated BMI. 2Interpretive Data: Adult reference range values reflect the clinical guidelines of the [place] [employer]. CARDIAC ENZYMES Most recent to 1 oldest [Reference Range]: Total CK [12-191 48 unit/L unit/L] (11/08/14 3:03 PM) CK MB [0.5-3.6 0.9 ng/mL ng/mL] (11/08/14 3:03 PM) CK MB Index 1.9 [0.0-2.5] (11/08/14 3:03 PM) Troponin-I <0.02 ng/mL [0.00-0.40 ng/mL] (11/08/14 3:03 PM) URINE AND STOOL Most recent to 1 oldest [Reference Range]: UA Turbidity [Clear] Clear (11/08/14 4:04 PM) UA Color Ltyellow *NA* (11/08/14 4:04 PM) UA pH [5.0-8.0] 7.0 (11/08/14 4:04 PM) UA Spec Grav 1.009 [<=1.030] (11/08/14 4:04 PM) UA Glucose [Negative Negative mg/dL mg/dL] *NA* (11/08/14 4:04 PM) UA Blood [Negative] Negative (11/08/14 4:04 PM) UA Ketones [Negative Negative mg/dL mg/dL] *NA* (11/08/14 4:04 PM) UA Protein [Negative Negative mg/dL mg/dL] (11/08/14 4:04 PM) UA Urobilinogen <=1.0 mg/dL [0.1-1.0 mg/dL] *NA* (11/08/14 4:04 PM) UA Bili [Negative] Negative *NA* (11/08/14 4:04 PM) UA Leuk Est Negative [Negative] (11/08/14 4:04 PM) UA Nitrite Negative [Negative] (11/08/14 4:04 PM) UA WBC [0-5 /HPF] 2 /HPF (11/08/14 4:04 PM) UA RBC [0-2 /HPF] 1 /HPF (11/08/14 4:04 PM) UA Bacteria [None Occasional /HPF Seen /HPF] *NA* (11/08/14 4:04 PM) UA Sq Epi [Few /LPF] Occasional /LPF *NA* (11/08/14 4:04 PM) UA Hyal Cast [0-2 2 /LPF /LPF] (11/08/14 4:04 PM) HEMATOLOGY Most recent to 1 oldest [Reference Range]: WBC [3.7-10.4 K/CMM] 7.9 K/CMM (11/08/14 3:03 PM) RBC [4.20-5.40 4.14 M/CMM M/CMM] *LOW* (11/08/14 3:03 PM) Hgb [12.0-16.0 g/dL] 14.2 g/dL (11/08/14 3:03 PM) Hct [36.0-48.0 %] 42.4 % (11/08/14 3:03 PM) MCV [80.0-98.0 fL] 102.5 fL *HI* (11/08/14 3:03 PM) MCH [27.0-31.0 pg] 34.3 pg *HI* (11/08/14 3:03 PM) MCHC [32.0-36.0 33.4 g/dL g/dL] (11/08/14 3:03 PM) RDW [11.5-14.5 %] 12.7 % (11/08/14 3:03 PM) Platelet [133-450 437 K/CMM K/CMM] (11/08/14 3:03 PM) MPV [7.4-10.4 fL] 9.0 fL (11/08/14 3:03 PM) Segs [45.0-75.0 %] 76.0 % *HI* (11/08/14 3:03 PM) Lymphocytes 15.8 % [20.0-40.0 %] *LOW* (11/08/14 3:03 PM) Monocytes [2.0-12.0 5.7 % %] (11/08/14 3:03 PM) Eosinophils [0.0-4.0 1.7 % %] (11/08/14 3:03 PM) Basophils [0.0-1.0 0.8 % %] (11/08/14 3:03 PM) Segs-Bands # 6.0 K/CMM [1.5-8.1 K/CMM] (11/08/14 3:03 PM) Lymphocytes # 1.2 K/CMM [1.0-5.5 K/CMM] (11/08/14 3:03 PM) Monocytes # [0.0-0.8 0.4 K/CMM K/CMM] (11/08/14 3:03 PM) Eosinophils # 0.1 K/CMM [0.0-0.5 K/CMM] (11/08/14 3:03 PM) Basophils # [0.0-0.2 0.1 K/CMM K/CMM] (11/08/14 3:03 PM) Macrocyte [None 1+ Seen] *ABN* (11/08/14 3:03 PM) Immunizations No data available for this section [...]
[2019-02-13 12:34] LABS: BASOPHILS % 0.3 % (0.0-1.0); EOSINOPHILS # (AUTO) 0.2 (0.0-0.4); EOSINOPHILS % 1.7 % (0.0-6.0); HEMATOCRIT 44.5 % (34.2-44.1); HEMOGLOBIN 14.8 g/dL (12.0-16.0); LYMPHOCYTES # (AUTO) 1.3 (1.0-3.2); LYMPHOCYTES % 10.5 % (18.0-39.1); MEAN CORPUSCULAR HEMOGLOBIN 33.5 pg (28-32); MEAN CORPUSCULAR HGB CONC 33.3 g/dL (31-35); MEAN CORPUSCULAR VOLUME 100.7 fL (81-99); MONOCYTES # (AUTO) 0.8 (0.2-0.8); MONOCYTES % 6.7 % (4.4-11.3); NEUTROPHILS # (AUTO) 9.8 (2.1-6.9); NEUTROPHILS % 80.4 % (38.7-80.0); PLATELET COUNT 303 x10e3/uL (140-360); RED BLOOD COUNT 4.42 x10e6/uL (3.6-5.1)
[2019-02-13 13:07] LABS: ALANINE AMINOTRANSFERASE 15 IU/L (0-55); ALBUMIN 3.9 g/dL (3.5-5.0); ALBUMIN/GLOBULIN RATIO 1.3 (0.8-2.0); ALKALINE PHOSPHATASE 118 IU/L (40-150); ANION GAP 13.5 mmol/L (8-16); BLOOD UREA NITROGEN 7 mg/dL (7-26); BUN/CREATININE RATIO 11 (6-25); CALCIUM 9.5 mg/dL (8.4-10.2); CARBON DIOXIDE 27 mmol/L (22-29); CHLORIDE 105 mmol/L (98-107); CREATINE KINASE 27 IU/L (29-168); CREATININE, SERUM 0.64 mg/dL (0.57-1.11); EST GLOMERULAR FILTRATION RATE > 60 ML/MIN (60-); GLUCOSE 98 mg/dL (74-118); POTASSIUM 3.5 mmol/L (3.5-5.1); SODIUM 142 mmol/L (136-145)
--- NOTE | 2019-02-13 14:07 | NUR ---
NOTIFIED [facility] FOR PATIENT TRANSFER VIA [facility]CHER TO D/C TO [facility], SPOKE WITH DM.
== END 2019-02-13 16:18 ==
LOC: ER 11:10
DX: I49.8 Other specified cardiac arrhythmias (principal); R00.2 Palpitations; F03.90 Unspecified dementia, unspecified severity, without behavioral disturbance, psychotic disturbance, mood disturbance, and anxiety; I10 Essential (primary) hypertension; J45.909 Unspecified asthma, uncomplicated; M35.00 Sjogren syndrome, unspecified
CPT/HCPCS: 36415; 80053; 82550; 82553; 83735; 84484; 85025; 93005; 99284